=== PATIENT | female | born 1955 ===

== ENCOUNTER 2018-07-05 17:25 | Inpatient (IN) | payer MEDICAID ==
--- NOTE | 2018-07-05 18:12 | C.PDOC ---
History Of Present Illness Hx limited due to clinical condition, Hx as per niece, 63 year old female with new onset slurred speech with AMS upon awakening this morning. Patient has been crying all day, been more confused than usual. Patient has Hx of multiple prior osteomyelitis, recent treatment on 04/2018. Patient had normal speech yesterday as per family. She has had progressive functional decline since 12/2017, requires assistance for ADLS. Patient denies focal pain. Hx of HTN, diabetes, hypothyroidism, rheumatoid arthritis, chronic foot ulcers, and chronic anemia. LIMITED DUE TO CLIN COND HX PER NIECE NEW ONSET SLURRED SPEECH, AMS UPON AWAKENING THIS MORNING. CRYING ALL DAY, MORE CONFUSED THAN USUAL. HO MULT PRIOR OSTEOMYELITIS, RECENT TX 04/2018. NORMAL SPEECH YESTERDAY PER FAMILY. PROGRESSIVE FUNCTIONAL DECLINE SINCE 12/2017, REQUIRES ASSISTANCE FOR ADLS. PT DENIES FOCAL PAIN HO HTN, DM, HYPOTHYROIDISM, RA, CHRONIC FOOT ULCERS, CHRONIC ANEMIA ROS LIMITED EXAM MILD DIST NONTOXIC HEENT MM DRY LUNGS NEG ABD NEG NEURO SEE NIH REMAINDER NEG Time Seen by Provider: 07/05/18 18:00 Chief Complaint (Nursing): Weakness/Neurological Deficit History Per: Family History/Exam Limitations: Clinical Condition Onset/Duration Of Symptoms: Hrs Onset Of Symptoms: Other (Upon awakening) Current Symptoms Are (Timing): Still Present Usual Baseline: Alert Oriented Exacerbating Factor(s): Unknown Speech Is: Slurred Associated Symptoms: Other (AMS) Past Medical History Reviewed: Historical Data, Nursing Documentation, Vital Signs Vital Signs: Last Vital Signs Temp 98.1 F 07/05/18 18:04 Pulse 96 H 07/05/18 18:04 Resp 20 07/05/18 18:04 BP 146/65 07/05/18 18:04 Pulse Ox 100 07/05/18 18:04 Primary Care Provider: Rosalba Holcomb S - Medical History PMH: Anemia, Arthritis, Diabetes, Fractures, HTN, Hypercholesterolemia, Hypothyroidism, Chronic Kidney Disease, Rheumatoid Arthritis Denies: Deep Vein Thrombosis, HIV, Hyperthyroidism, Osteoporosis, Sickle Cell Disease Surgical History: Denies: Pacemaker - [facility] Procedures EXCISION OF L FOOT SUBCU/FASCIA, OPEN APPROACH (04/13/18) EXCISION OF R FOOT SUBCU/FASCIA, OPEN APPROACH (04/13/18) INSERTION OF INFUSION DEV INTO SUP VENA CAVA, PERC APPROACH (04/13/18) TRANSFUSE NONAUT RED BLOOD CELLS IN PERIPH VEIN, PERC (04/13/18) Family History: States: Unknown Family Hx - Social History Hx Alcohol Use: No Hx Substance Use: No - Immunization History Hx Tetanus Toxoid Vaccination: (unk) Hx Influenza Vaccination: Yes (01/2018) Hx Pneumococcal Vaccination: Yes (01/2018) Review Of Systems Review Of Systems: ROS cannot be obtained secondary to pt's inabilty to answer questions. Physical Exam - Physical Exam Appears: Non-toxic, Other (Mild distress) Skin: Normal Color, Warm Head: Atraumatic, Normacephalic Eye(s): bilateral: Normal Inspection Ear(s): Bilateral: Normal Nose: Normal Oral Mucosa: Dry Throat: Normal, No Erythema, No Exudate Neck: Normal, Supple Chest: Symmetrical, No Tenderness Cardiovascular: Rhythm Regular Respiratory: Normal Breath Sounds, No Rales, No Rhonchi, No Wheezing Gastrointestinal/Abdominal: Soft, No Tenderness Neurological/Psych: Other (See NIH) ED Course And Treatment - Laboratory Results Result Diagrams: 07/05/18 19:30 07/05/18 19:30 ECG: Interpreted By Ks, Viewed By Ks ECG Rhythm: Sinus Rhythm ECG Interpretation: Normal Rate From EC O2 Sat by Pulse Oximetry: 100 (Room air) Pulse Ox Interpretation: Normal - Radiology CXR: Interpreted by Ks CXR Interpretation: Yes: No Acute Disease - CT Scan/US CT head Other Rad Studies (CT/US): Read By Radiologist, Radiology Report Reviewed CT/US Interpretation: EXAM: CT Head Without IV contrast. CLINICAL HISTORY: A ms. TECHNIQUE: Axial computed tomography images of the head/brain without intravenous contrast. COMPARISON: None provided. FINDINGS: BRAIN: No acute intraparenchymal hemorrhage. No mass lesion. No CT evidence for acute territorial infarct. 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 VENTRICLES: No hydrocephalus. ORBITS: The orbits are unremarkable. SINUSES AND MASTOIDS: The paranasal sinuses and mastoid air cells are clear. BONES: No fracture. SOFT TISSUES: Unremarkable. 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 . Electronically signed on July 05, 2018 7:56:42 PM EDT by: Von Bae M.D., Certified by [facility], Diagnostic Radiology. NIHSS Stroke Scale - Date/Time Evaluation Performed Date Performed: 07/05/18 Time Performed: 18:09 When Was NIHSS Performed: Baseline - How Severe is the Stoke Level of Consciousness: 1=Drowsy LOC to Questions: 0=Both comments correct LOC to commands: 0=Obeys both correctly Best Gaze: 0=Normal Visual: 0=No visual loss Facial: 0=Normal Motor Arm - Left: 2=Falls before 10 sec Motor Arm - Right: 2=Falls before 10 sec Motor Leg - Left: 3=No effort against gravity (falls immediately) Motor Leg - Right: 3=No effort against gravity (falls immediately) Limb Ataxia: 0=Absent Sensory: 0=Normal Best Language: 0=No aphasia Dysarthia: 1=Mild to moderate slurring Extinction & Inattention (Neglect): 0=Normal, no object Score: 12 Progress - Re-Evaluation Re-evaluation Note: 07/05/18 20:08 exam unch d/w DR Diony HOLCOMB WILL ADMIT - Data Reviewed Data Reviewed: Lab, Diagnostic imaging, EKG, Old records rTPA Inclusion/Exclusion - Refusal of Treatment Patient Refused Treatment: No - Inclusion Criteria for Altepase All of the below criteria for inclusion were reviewed: Yes Patient is 18 years or Older: Yes Clinical DX Ischemic Stroke Cause Neurological Deficit: Yes Time of Onset Established Less Than 270 Mins Before TX Begin: No Risk/Benefit Discussed With Patient/Family Member Present: Yes - Exclusion Criteria for Altepase Current Intracranial Hemorrhage: No Subarachnoid hemorrhage: No Active Internal Bleeding: No Recent (within 3 months) Intracranial or Intraspinal Surgery: No Presence of intracranial conditions that may increase bleed: Aneurysms Bleeding Diathesis Including but not limited to: Not Applicable Current Severe Uncontrolled Hypertension: No - Warning to TPA With Conditions Following Conditions Weighed Against Anticipated Benefit: Yes Condition: Advanced age with poor baseline function Medical Decision Making Medical Decision Making: Plan: * CT Head * EKG * CXR * Urinalysis * Blood work Disposition Counseled Patient/Family Regarding: Studies Performed, Diagnosis - Disposition Disposition: HOSPITALIZED Disposition Time: 20:08 Condition: STABLE Forms: [facility] (Maltese) - POA Present On Arrival: None - Clinical Impression Clinical Impression: TIA (transient ischemic attack) - Scribe Statement The provider has reviewed the documentation as recorded by the Scribe Jacky Liu All medical record entries made by the Scribe were at my direction and personally dictated by me. I have reviewed the chart and agree that the record accurately reflects my personal performance of the history, physical exam, medical decision making, and the department course for this patient. I have also personally directed, reviewed, and agree with the discharge instructions and disposition.
--- NOTE | 2018-07-05 18:26 | RAD ---
Date of service: 07/05/2018 PROCEDURE: CHEST RADIOGRAPH, 1 VIEW HISTORY: AMS COMPARISON: None available. FINDINGS: LUNGS: Clear. PLEURA: No pneumothorax or pleural fluid seen. CARDIOVASCULAR: No aortic atherosclerotic calcification present. Normal. OSSEOUS STRUCTURES: No significant abnormalities. VISUALIZED UPPER ABDOMEN: Normal. OTHER FINDINGS: None. IMPRESSION: No active disease.
[2018-07-05 18:57] LABS: VENOUS BLOOD GAS BASE EXCESS -0.6 mmol/L (0.0-2.0); VENOUS BLOOD GAS PCO2 43 mmHg (40-60); VENOUS BLOOD GAS PO2 39 mm/Hg (30-55); VENOUS BLOOD PH 7.37 (7.32-7.43)
[2018-07-05 19:34] LABS: BASO # 0.1 K/uL (0.0-0.2); BASO % 0.7 % (0.0-2.0); EOS # 0.4 K/uL (0.0-0.7); HEMOGLOBIN 10.5 g/dL (11.0-16.0); LYMPH # 0.9 K/uL (1.0-4.3); LYMPH % 11.7 % (20.0-40.0); MEAN CELL VOLUME 86.5 fL (81.0-99.0); MEAN CORPUSCULAR HEMOGLOBIN 28.1 pg (27.0-31.0); MEAN CORPUSCULAR HGB CONC 32.5 g/dL (33.0-37.0); MEAN PLATELET VOLUME 8.3 fL (7.2-11.7); MONO # 0.9 K/uL (0.0-0.8); MONO % 11.7 % (0.0-10.0); NEUT # 5.4 K/uL (1.8-7.0); NEUT % 70.9 % (50.0-75.0); RBC 3.74 Mil/uL (3.80-5.20); WHITE BLOOD COUNT 7.6 K/uL (4.8-10.8)
[2018-07-05 19:39] LABS: SQUAMOUS EPITHIAL 1 /hpf (0-5); URINE BILIRUBIN NEGATIVE (NEGATIVE); URINE BLOOD NEGATIVE (NEGATIVE); URINE CLARITY Hazy (Clear); URINE COLOR Yellow (YELLOW); URINE GLUCOSE (UA) NORMAL (Normal); URINE LEUKOCYTE ESTERASE NEG Leu/uL (Negative); URINE PROTEIN 2+ mg/dL (NEGATIVE); URINE UROBILINOGEN NORMAL mg/dL (0.2-1.0)
[2018-07-05 19:45] LABS: ALB/GLOB RATIO 0.7 (1.0-2.1); ALBUMIN 3.5 g/dL (3.5-5.0); CALCIUM 9.4 mg/dl (8.6-10.4)
[2018-07-05 22:14] VITALS: RESP 20
[2018-07-06] MEDS: Sodium Chloride 0.45% 1,000 ML IV SCH (09:00)
--- NOTE | 2018-07-06 09:44 | CT ---
Date of service: 07/05/2018 PROCEDURE: CT HEAD WITHOUT CONTRAST. HISTORY: AMS COMPARISON: None available. TECHNIQUE: Axial computed tomography images were obtained through the head/brain without intravenous contrast. Radiation dose: Total exam DLP = 1046.98 mGy-cm. This CT exam was performed using one or more of the following dose reduction techniques: Automated exposure control, adjustment of the mA and/or kV according to patient size, and/or use of iterative reconstruction technique. FINDINGS: HEMORRHAGE: No intracranial hemorrhage. BRAIN: There Is hypodensity noted along the right external capsule suggestive of subacute or old infarction. Mild atrophy and mild to moderate chronic microvascular ischemic changes. VENTRICLES: Unremarkable. No hydrocephalus. CALVARIUM: Unremarkable. PARANASAL SINUSES: Unremarkable as visualized. No significant inflammatory changes. MASTOID AIR CELLS: Unremarkable as visualized. No inflammatory changes. OTHER FINDINGS: None. IMPRESSION: No evidence of acute intracranial hemorrhage mass effect or midline shift. 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 Volume loss and chronic microvascular ischemic changes. Preliminary report was submitted by [facility] Radiology contains concordant findings
[2018-07-06] MEDS ORDERED: CEFTRIAXONE 1 GM IVPB SCH (12:45)
[2018-07-06] MEDS: Enoxaparin 30 mg Syringe SC SCH (13:46)
[2018-07-06] MEDS: Pantoprazole 40 mg EC Tab PO SCH (13:46)
[2018-07-06] MEDS: Metoprolol Succinate 100 mg XL Tab PO SCH (13:47)
--- NOTE | 2018-07-06 13:48 | CP.PCM.CON ---
History of Present Illness - History of Present Illness History of Present Illness: Podiatry consult note for attending Dr. Torrez: 62 year old female with a past medical history of Rheumatoid arthritis, hypertension and hypercholesterolemia and B/L feet OM. seen and evaluated in the bedside for b/l LE stable ulcerations with underlying OM. Patient is poor historian. Patient is well known to the podiatry service as she was admitted back in April under Dr. Torrez care for B/L LE ulcerations with underlying OM. Patient was discharged on long course of Abx. Her family was at the bedside. As per patient's niece, Patient was in the shelter where local wound care was performed to her and she was improving. As per Cheryl patient was doing PT and was doing well and she only started complaining of pain in her legs and feet in the past 2 weeks. She states that she went to [facility] last week and [facility] gave her a short course of Abx. SHe states that the patient is here today as SHe has altered mental status and possible CVA. As per the patient Niece there was no recent fevers, nausea, vomiting, cough,and shortness of breath. PMHx: RA, HTN and HLD. (?possible brain aneurysm as per niece, >5 years ago in [place]) and B/L feet OM. PSHx: Left wrist fracture repair. Possible brain aneurism surgery?, B/L LE I&D. Allergies: NKDA Social Hx: denied tobacco, alcohol or rec drugs. Review of Systems - Review of Systems Review of Systems: As per HPI - Constitutional Constitutional: As Per HPI Past Patient History - Infectious Disease Hx of Infectious Diseases: None - Past Medical History & Family History Past Medical History?: Yes - Past Social History Smoking Status: Never Smoked - CARDIAC Hx Hypercholesterolemia: Yes Hx Hypertension: Yes Hx Pacemaker: No - PULMONARY Hx Respiratory Disorders: No - NEUROLOGICAL Hx Neurological Disorder: No Other/Comment: Aneurysm - HEENT Hx HEENT Problems: No - RENAL Hx Chronic Kidney Disease: Yes - ENDOCRINE/METABOLIC Hx Hyperthyroidism: No Hx Hypothyroidism: Yes - HEMATOLOGICAL/ONCOLOGICAL Hx Anemia: Yes Hx Human Immunodeficiency Virus (HIV): No Hx Sickle Cell Disease: No - INTEGUMENTARY Hx Dermatological Problems: No - MUSCULOSKELETAL/RHEUMATOLOGICAL Hx Arthritis: Yes Hx Fractures: Yes Hx Osteoporosis: No Hx Rheumatoid Arthritis: Yes - GASTROINTESTINAL Hx Gastrointestinal Disorders: No - GENITOURINARY/GYNECOLOGICAL Hx Genitourinary Disorders: No - PSYCHIATRIC Hx Substance Use: No - SURGICAL HISTORY Hx Surgeries: Yes Other/Comment: left wrist surgery, brain surgery - ANESTHESIA Hx Anesthesia: Yes Hx Anesthesia Reactions: No Meds Allergies/Adverse Reactions: Allergies Allergy/AdvReac Type Severity Reaction Status Date / Time No Known Allergies Allergy Verified 07/05/18 17:53 - Medications Medications: Current Medications Amlodipine Besylate (Norvasc) 5 mg PO DAILY [facility] Aspirin (Aspirin) 325 mg PO DAILY [facility] Last Admin: 07/06/18 10:12 Dose: Not Given Aspirin (Aspirin Chewable) 81 mg PO DAILY [facility] Enoxaparin Sodium (Lovenox) 30 mg SC DAILY [facility] Fluconazole (Diflucan) 100 mg PO DAILY [facility]; Protocol Gabapentin (Neurontin) 400 mg PO HS [facility] Sodium Chloride (Sodium Chloride 0.45%) 1,000 mls @ 60 mls/hr IV .[id number] [facility] Ceftriaxone Sodium 1 gm/ (Sodium Chloride) 100 mls @ 100 mls/hr IVPB DAILY [facility] Levothyroxine Sodium (Synthroid) 100 mcg PO DAILY@0630 [facility] Metoprolol Succinate (Toprol Xl) 100 mg PO DAILY [facility] Mirtazapine (Remeron) 15 mg PO HS [facility] Ondansetron HCl (Zofran Inj) 4 mg IVP Q6 PRN PRN Reason: Nausea/Vomiting Pantoprazole Sodium (Protonix Ec Tab) 40 mg PO DAILY [facility] Rosuvastatin Calcium (Crestor) 10 mg PO HS [facility] Silver Sulfadiazine (Silvadene 1% 20 Gm) 1 ea TOP DAILY [facility] Physical Exam - Constitutional Appears: Non-toxic, No Acute Distress - Head Exam Head Exam: ATRAUMATIC - Extremities Exam Additional comments: B/L lower extremity focused exam: Vascular: DP/PT are 2/4 b/l, Cap refill < 3 seconds to all digits, Temp gradient warm to cool from proximal to distal b/l, no edema appreciated to b/l extremities. Neuro: Gross sensation intact, protective sensation diminished. Derm: Left: Multiple Healed ulcers covered by dry scab noted on the heel and lateral side of the left foot. No clinical signs of active infection. Right: Small healing ulcer noted in the right heel 1 cm X 0.4 cm X 0.1 cm. Base is fibrotic, Hyperkeratotic edges. No drainage noted. No tracking, No underm ining, No probe to bone. No clinical signs of active infection. MSK: Muscle power 5/5 to all groups, No pain noted on palpating the elif- ulcerative areas. - Neurological Exam Neurological exam: Alert Results - Vital Signs Recent Vital Signs: Last Vital Signs Temp 98.3 F 07/06/18 07:00 Pulse 90 07/06/18 07:00 Resp 20 07/06/18 07:00 BP 137/77 07/06/18 07:00 Pulse Ox 98 07/06/18 07:00 - Labs Result Diagrams: 07/05/18 19:30 07/05/18 19:30 Labs: Laboratory Results - last 24 hr 07/05/18 07/05/18 07/05/18 17:41 18:54 19:30 WBC 7.6 RBC 3.74 L Hgb 10.5 L Hct 32.4 L MCV 86.5 MCH 28.1 MCHC 32.5 L RDW 15.0 H Plt Count 400 MPV 8.3 Neut % (Auto) 70.9 Lymph % (Auto) 11.7 L [place] % (Auto) 11.7 H Eos % (Auto) 5.0 H Baso % (Auto) 0.7 Neut # (Auto) 5.4 Lymph # (Auto) 0.9 L [place] # (Auto) 0.9 H Eos # (Auto) 0.4 Baso # (Auto) 0.1 pO2 39 VBG pH 7.37 VBG pCO2 43 VBG HCO3 23.8 VBG Total CO2 26.2 VBG O2 Sat (Calc) 73.6 H VBG Base Excess -0.6 L VBG Potassium 4.5 Sodium 136.0 Chloride 105.0 Glucose 133 H Lactate 1.4 Potassium Carbon Dioxide Anion Gap BUN Creatinine Est GFR ( Amer) Est GFR (Non-Af Amer) POC Glucose (mg/dL) 186 H Random Glucose Calcium Phosphorus Magnesium Total Bilirubin AST ALT Alkaline Phosphatase Total Protein Albumin Globulin Albumin/Globulin Ratio Venous Blood Potassium 4.5 Urine Color Urine Clarity Urine pH Ur Specific [place] Urine Protein Urine Glucose (UA) Urine Ketones Urine Blood Urine Nitrate Urine Bilirubin Urine Urobilinogen Ur Leukocyte Esterase Urine WBC (Auto) Urine RBC (Auto) Ur Squamous Epith Cells 07/05/18 07/05/1807/06/19 19:30 19:30 06:23 WBC RBC Hgb Hct MCV MCH MCHC RDW Plt Count MPV Neut % (Auto) Lymph % (Auto) [place] % (Auto) Eos % (Auto) Baso % (Auto) Neut # (Auto) Lymph # (Auto) [place] # (Auto) Eos # (Auto) Baso # (Auto) pO2 VBG pH VBG pCO2 VBG HCO3 VBG Total CO2 VBG O2 Sat (Calc) VBG Base Excess VBG Potassium Sodium 134 Chloride 101 Glucose Lactate Potassium 4.7 Carbon Dioxide 24 Anion Gap 13 BUN 41 H Creatinine 1.7 H Est GFR ( Amer) 37 Est GFR (Non-Af Amer) 30 POC Glucose (mg/dL) 110 Random Glucose 137 H Calcium 9.4 Phosphorus 4.1 Magnesium 2.0 Total Bilirubin 0.2 AST 20 ALT 10 Alkaline Phosphatase 90 Total Protein 8.3 Albumin 3.5 Globulin 4.8 H Albumin/Globulin Ratio 0.7 L Venous Blood Potassium Urine Color Yellow Urine Clarity Hazy Urine pH 5.0 Ur Specific [place] 1.015 Urine Protein 2+ H Urine Glucose (UA) Normal Urine Ketones Negative Urine Blood Negative Urine Nitrate Negative Urine Bilirubin Negative Urine Urobilinogen Normal Ur Leukocyte Esterase Neg Urine WBC (Auto) 2 Urine RBC (Auto) 1 Ur Squamous Epith Cells 1 Assessment & Plan - Assessment and Plan (Free Text) Assessment: 62 year old female with a past medical history of Rheumatoid arthritis, hypertension and hypercholesterolemia and B/L feet OM. seen and evaluated in the bedside for b/l LE stable ulcerations with underlying OM. Plan: Patient seen and evaluated at the bedside. Discussed in detail with Dr. Torrez Charts, labs and vitals reviewed; Afebrile, WBC 7.6. B/L foot/ankle x-ray: Ordered B/L tib/fibula x-ray: Ordered. B/L ROXY/PVR: Ordered B/L feet then dressed with betadine and DSD. Ordered Surgical shoe. Patient to ambulate in a surgical shoe. Patient to be full WB b/l. Ordered Multipodous boot. Patient to stay in multipodous boot while in bed. Thank you for the consult. Podiatry will follow up the patient while in house. - Date & Time Date: 07/06/18 Time: 13:49
--- NOTE | 2018-07-06 17:28 | CP.PCM.HP ---
Past Patient History - Infectious Disease Hx of Infectious Diseases: None - Past Medical History & Family History Past Medical History?: Yes - Past Social History Smoking Status: Never Smoked - CARDIAC Hx Hypercholesterolemia: Yes Hx Hypertension: Yes Hx Pacemaker: No - PULMONARY Hx Respiratory Disorders: No - NEUROLOGICAL Hx Neurological Disorder: No Other/Comment: Aneurysm - HEENT Hx HEENT Problems: No - RENAL Hx Chronic Kidney Disease: Yes - ENDOCRINE/METABOLIC Hx Hyperthyroidism: No Hx Hypothyroidism: Yes - HEMATOLOGICAL/ONCOLOGICAL Hx Anemia: Yes Hx Human Immunodeficiency Virus (HIV): No Hx Sickle Cell Disease: No - INTEGUMENTARY Hx Dermatological Problems: No - MUSCULOSKELETAL/RHEUMATOLOGICAL Hx Arthritis: Yes Hx Fractures: Yes Hx Osteoporosis: No Hx Rheumatoid Arthritis: Yes - GASTROINTESTINAL Hx Gastrointestinal Disorders: No - GENITOURINARY/GYNECOLOGICAL Hx Genitourinary Disorders: No - PSYCHIATRIC Hx Substance Use: No - SURGICAL HISTORY Hx Surgeries: Yes Other/Comment: left wrist surgery, brain surgery - ANESTHESIA Hx Anesthesia: Yes Hx Anesthesia Reactions: No Meds Allergies/Adverse Reactions: Allergies Allergy/AdvReac Type Severity Reaction Status Date / Time No Known Allergies Allergy Verified 07/05/18 17:53 Physical Exam - Constitutional Appears: Well - Head Exam Head Exam: ATRAUMATIC, NORMAL INSPECTION, NORMOCEPHALIC - Eye Exam Eye Exam: EOMI, Normal appearance, PERRL Pupil Exam: NORMAL ACCOMODATION, PERRL - ENT Exam ENT Exam: Mucous Membranes Moist, Normal Exam - Neck Exam Neck exam: Positive for: Normal Inspection - Respiratory Exam Respiratory Exam: Decreased Breath Sounds - Cardiovascular Exam Cardiovascular Exam: REGULAR RHYTHM, +S1, +S2 - GI/Abdominal Exam GI & Abdominal Exam: Diminished Bowel Sounds, Soft - Rectal Exam Rectal Exam: Deferred - Neurological Exam Neurological exam: Oriented x3 Results - Vital Signs Recent Vital Signs: Last Vital Signs Temp 97.9 F 07/06/18 15:09 Pulse 87 07/06/18 16:00 Resp 20 07/06/18 15:09 BP 153/82 H 07/06/18 15:09 Pulse Ox 100 07/06/18 16:00 - Labs Result Diagrams: 07/05/18 19:30 07/05/18 19:30 Labs: Laboratory Results - last 24 hr 07/05/18 07/05/18 07/05/18 17:41 18:54 19:30 WBC 7.6 RBC 3.74 L Hgb 10.5 L Hct 32.4 L MCV 86.5 MCH 28.1 MCHC 32.5 L RDW 15.0 H Plt Count 400 MPV 8.3 Neut % (Auto) 70.9 Lymph % (Auto) 11.7 L [place] % (Auto) 11.7 H Eos % (Auto) 5.0 H Baso % (Auto) 0.7 Neut # (Auto) 5.4 Lymph # (Auto) 0.9 L [place] # (Auto) 0.9 H Eos # (Auto) 0.4 Baso # (Auto) 0.1 pO2 39 VBG pH 7.37 VBG pCO2 43 VBG HCO3 23.8 VBG Total CO2 26.2 VBG O2 Sat (Calc) 73.6 H VBG Base Excess -0.6 L VBG Potassium 4.5 Sodium 136.0 Chloride 105.0 Glucose 133 H Lactate 1.4 Potassium Carbon Dioxide Anion Gap BUN Creatinine Est GFR ( Amer) Est GFR (Non-Af Amer) POC Glucose (mg/dL) 186 H Random Glucose Calcium Phosphorus Magnesium Total Bilirubin AST ALT Alkaline Phosphatase Total Protein Albumin Globulin Albumin/Globulin Ratio Venous Blood Potassium 4.5 Urine Color Urine Clarity Urine pH Ur Specific [place] Urine Protein Urine Glucose (UA) Urine Ketones Urine Blood Urine Nitrate Urine Bilirubin Urine Urobilinogen Ur Leukocyte Esterase Urine WBC (Auto) Urine RBC (Auto) Ur Squamous Epith Cells 07/05/18 07/05/18 07/06/18 19:30 19:30 06:23 WBC RBC Hgb Hct MCV MCH MCHC RDW Plt Count MPV Neut % (Auto) Lymph % (Auto) [place] % (Auto) Eos % (Auto) Baso % (Auto) Neut # (Auto) Lymph # (Auto) [place] # (Auto) Eos # (Auto) Baso # (Auto) pO2 VBG pH VBG pCO2 VBG HCO3 VBG Total CO2 VBG O2 Sat (Calc) VBG Base Excess VBG Potassium Sodium 134 Chloride 101 Glucose Lactate Potassium 4.7 Carbon Dioxide 24 Anion Gap 13 BUN 41 H Creatinine 1.7 H Est GFR ( Amer) 37 Est GFR (Non-Af Amer) 30 POC Glucose (mg/dL) 110 Random Glucose 137 H Calcium 9.4 Phosphorus 4.1 Magnesium 2.0 Total Bilirubin 0.2 AST 20 ALT 10 Alkaline Phosphatase 90 Total Protein 8.3 Albumin 3.5 Globulin 4.8 H Albumin/Globulin Ratio 0.7 L Venous Blood Potassium Urine Color Yellow Urine Clarity Hazy Urine pH 5.0 Ur Specific [place] 1.015 Urine Protein 2+ H Urine Glucose (UA) Normal Urine Ketones Negative Urine Blood Negative Urine Nitrate Negative Urine Bilirubin Negative Urine Urobilinogen Normal Ur Leukocyte Esterase Neg Urine WBC (Auto) 2 Urine RBC (Auto) 1 Ur Squamous Epith Cells 1
--- NOTE | 2018-07-06 20:16 | RAD ---
Date of service: 07/06/2018 PROCEDURE: Radiographs of the bilateral Tibiae and Fibulae. HISTORY: B/L leg ulcers w/ underlying OM. COMPARISON: None available. TECHNIQUE: Frontal and lateral views obtained. 4 views obtained. FINDINGS: BONES: RIGHT TIBIA: No fracture or destructive lesion. No evidence of significant or focal periosteal thickening. LEFT TIBIA: No fracture or destructive lesion. No evidence of significant or focal periosteal thickening. JOINT SPACES: RIGHT TIBIA: Normal. LEFT TIBIA: Normal. SOFT TISSUES: RIGHT TIBIA: Normal. LEFT TIBIA: Normal. OTHER FINDINGS: None. IMPRESSION: No definite radiographic evidence of active osteomyelitis.
--- NOTE | 2018-07-06 20:26 | RAD ---
Date of service: 07/06/2018 PROCEDURE: Bilateral Feet Radiographs. HISTORY: B/L foot ulcers w/ underlying OM. COMPARISON: None. TECHNIQUE: 6 views obtained. FINDINGS: BONES: Right Foot: Normal. No fracture. Left Foot: There is a cortical irregularity noted at the posterior aspect of the left calcaneus. The possibility of osteomyelitis is not totally excluded. JOINTS: Right Foot: Osteoarthritis. Left Foot: Osteoarthritis. SOFT TISSUES: Right Foot: Small skin ulcer at right heel. Left Foot: Skin and subcutaneous defect in the left heel OTHER FINDINGS: None. IMPRESSION: Cortical irregularity at the posterior and plantar aspect of the left calcaneus suspicious for osteomyelitis.
[2018-07-07] MEDS: Sodium Chloride 0.45% 1,000 ML IV SCH ×3 (03:30→20:27)
[2018-07-07] MEDS: Levothyroxine 100 MCG TAB PO SCH (07:04)
--- NOTE | 2018-07-07 09:54 | CP.PCM.PN ---
Subjective - Date & Time of Evaluation Date of Evaluation: 07/07/18 Time of Evaluation: 09:53 - Subjective Subjective: 63 year old female with a past medical history of hypertension, hyperlipidemia, and rheumatoid arthritis) presented with sympotms of new onset slurred speech prior to coming into the hospital. Patient was also altered during this epis ode. Per niece, patient was crying the whole day leading up to the event. Of note, patient has had repeated osteomyelitis infections in the past with the most recent being 04/2018. Remainder of ROS unable to obtain due to patients current clinical condition. PMHx: RA, HTN and HLD. (?possible brain aneurysm as per niece, >5 years ago in [place]) and B/L feet OM. PSHx: Left wrist fracture repair. Possible brain aneurism surgery?, B/L LE I&D. Allergies: NKDA Social Hx: denied tobacco, alcohol or rec drugs. Objective - Vital Signs/Intake and Output Vital Signs (last 24 hours): Temp Pulse Resp BP Pulse Ox 98.2 F 84 20 131/80 96 07/07/18 07:15 07/07/18 07:15 07/07/18 07:15 07/07/18 07:15 07/07/18 07:15 Intake and Output: 07/07/18 07/07/18 06:59 18:59 Intake Total 960 Output Total 1200 Balance -240 - Medications Medications: Current Medications Amlodipine Besylate (Norvasc) 5 mg PO DAILY [facility] Last Admin: 07/06/18 13:47 Dose: 5 mg Aspirin (Aspirin) 325 mg PO DAILY [facility] Last Admin: 07/06/18 10:12 Dose: Not Given Aspirin (Aspirin Chewable) 81 mg PO DAILY [facility] Last Admin: 07/06/18 13:47 Dose: 81 mg Enoxaparin Sodium (Lovenox) 30 mg SC DAILY [facility] Last Admin: 07/06/18 13:46 Dose: 30 mg Fluconazole (Diflucan) 100 mg PO DAILY [facility]; Protocol Last Admin: 07/06/18 13:50 Dose: 100 mg Gabapentin (Neurontin) 400 mg PO HS [facility] Last Admin: 07/06/18 22:03 Dose: 400 mg Sodium Chloride (Sodium Chloride 0.45%) 1,000 mls @ 60 mls/hr IV .[id number] [facility] Last Admin: 07/07/18 05:00 Dose: 60 mls/hr Ceftriaxone Sodium 1 gm/ (Sodium Chloride) 100 mls @ 100 mls/hr IVPB DAILY [facility] Last Admin: 07/06/18 18:29 Dose: 100 mls/hr Vancomycin HCl 1 gm/ Sodium (Chloride) 250 mls @ 166.7 mls/hr IVPB Q24H [facility]; Pr otocol Levothyroxine Sodium (Synthroid) 100 mcg PO DAILY@0630 [facility] Last Admin: 07/07/18 07:04 Dose: 100 mcg Metoprolol Succinate (Toprol Xl) 100 mg PO DAILY [facility] Last Admin: 07/06/18 13:47 Dose: 100 mg Mirtazapine (Remeron) 15 mg PO [facility] Last Admin: 07/06/18 22:00 Dose: 15 mg Ondansetron HCl (Zofran Inj) 4 mg IVP Q6 PRN PRN Reason: Nausea/Vomiting Pantoprazole Sodium (Protonix Ec Tab) 40 mg PO DAILY [facility] Last Admin: 07/06/18 13:46 Dose: 40 mg Rosuvastatin Calcium (Crestor) 10 mg PO [facility] Last Admin: 07/06/18 22:00 Dose: 10 mg Silver Sulfadiazine (Silvadene 1% 20 Gm) 1 ea TOP DAILY [facility] - Labs Labs: 07/05/18 19:30 07/05/18 19:30 - Head Exam Head Exam: NORMAL INSPECTION - Eye Exam Eye Exam: EOMI, Normal appearance Pupil Exam: NORMAL ACCOMODATION, PERRL - ENT Exam ENT Exam: Mucous Membranes Moist, Normal Exam - Neck Exam Neck Exam: Normal Inspection. absent: Tenderness - Respiratory Exam Respiratory Exam: Clear to Ausculation Bilateral, NORMAL BREATHING PATTERN. absent: Stridor - Cardiovascular Exam Cardiovascular Exam: REGULAR RHYTHM, +S1, +S2 - GI/Abdominal Exam GI & Abdominal Exam: Soft, Tenderness, Normal Bowel Sounds - Extremities Exam Extremities Exam: Normal Capillary Refill, Normal Inspection, Pedal Edema - Back Exam Back Exam: NORMAL INSPECTION - Neurological Exam Neurological Exam: Awake, CN II-XII Intact, Normal Gait, Oriented x3 - Psychiatric Exam Psychiatric exam: Normal Affect, Normal Mood. absent: Homicidal Ideation, Manic - Skin Skin Exam: Dry, Intact, Normal Color Assessment and Plan - Assessment and Plan (Free Text) Assessment: 63 year old female with a past medical history of hypertension, hyperlipidemia, and rheumatoid arthritis) presented with sympotms of new onset slurred speech prior to coming into the hospital. Patient was also altered during this episode. Plan: 1.TIA -GCS 12 on admission -Head ct :No evidence of acute intracranial hemorrhage mass effect or midline shift. 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 Volume loss and chronic microvascular ischemic changes. -Neurology Dr. Vaughn consulted--> Help appreciated Medications: ASA 325MG po daily 2.hx of Hypertension -Cotinue Amlodipine 5mg PO DAILY -Continue Metoprolol 100mg PO DAILY 3.hx of Hyperlipidemia -Continue Crestor 10mg PO HS 4.hx of Neuropathy -Continue Gabapentin 400mg PO HS 5.hx of Hypothyroidism -Continue Synthroid 100mcg PO DAILY 6.hx of Osteomyellitis of feet -Blood cx ordered. Will f/u with results. -Podiatry Dr. Torrez consulted. :Patient seen and evaluated at the bedside. Discussed in detail with Dr. Torrez Charts, labs and vitals reviewed; Afebrile, WBC 7.6. B/L foot/ankle x-ray: Ordered B/L tib/fibula x-ray: Ordered. B/L ROXY/PVR: Ordered B/L feet then dressed with betadine and DSD. Ordered Surgical shoe. Patient to ambulate in a surgical shoe. Patient to be full WB b/l. Ordered Multipodous boot. Patient to stay in multipodous boot while in bed. Thank you for the consult. Podiatry will follow up the patient while in house. Medications: Vancomycin 1gm IVPB Q24H Ceftriaxone 1gm IVPB DAILY Silvadene 1 ea TOP DAILY PPX Lovenox Protonix PT Dispo: Awaiting Neurology recommendations. Plan discussed with Attending Dr. Collin Marte. Joao Mosley, PGY2
[2018-07-07] MEDS: Metoprolol Succinate 100 mg XL Tab PO SCH (11:00)
[2018-07-07] MEDS: Pantoprazole 40 mg EC Tab PO SCH (11:00)
[2018-07-07] MEDS: Enoxaparin 30 mg Syringe SC SCH (11:00)
--- NOTE | 2018-07-07 14:35 | CP.PCM.PN ---
Subjective - Date & Time of Evaluation Date of Evaluation: 07/07/18 Time of Evaluation: 09:50 - Subjective Subjective: patient examined today no nausea no dizziness no diarrhea no fever no vomiting no shortness of breath Objective - Vital Signs/Intake and Output Vital Signs (last 24 hours): Temp Pulse Resp BP Pulse Ox 98.2 F 84 20 131/80 96 07/07/18 07:15 07/07/18 08:00 07/07/18 07:15 07/07/18 07:15 07/07/18 08:00 Intake and Output: 07/07/18 07/07/18 06:59 18:59 Intake Total 960 Output Total 1200 Balance -240 - Medications Medications: Current Medications Amlodipine Besylate (Norvasc) 5 mg PO DAILY [facility] Last Admin: 07/06/18 13:47 Dose: 5 mg Aspirin (Aspirin) 325 mg PO DAILY [facility] Last Admin: 07/06/18 10:12 Dose: Not Given Aspirin (Aspirin Chewable) 81 mg PO DAILY [facility] Last Admin: 07/06/18 13:47 Dose: 81 mg Enoxaparin Sodium (Lovenox) 30 mg SC DAILY [facility] Last Admin: 07/06/18 13:46 Dose: 30 mg Fluconazole (Diflucan) 100 mg PO DAILY [facility]; Protocol Last Admin: 07/06/18 13:50 Dose: 100 mg Gabapentin (Neurontin) 400 mg PO HS [facility] Last Admin: 07/06/18 22:03 Dose: 400 mg Sodium Chloride (Sodium Chloride 0.45%) 1,000 mls @ 60 mls/hr IV .[id number] [facility] Last Admin: 07/07/18 05:00 Dose: 60 mls/hr Ceftriaxone Sodium 1 gm/ (Sodium Chloride) 100 mls @ 100 mls/hr IVPB DAILY [facility] Last Admin: 07/07/18 13:15 Dose: 100 mls/hr Vancomycin HCl 1 gm/ Sodium (Chloride) 250 mls @ 166.7 mls/hr IVPB Q24H [facility]; Protocol Last Admin: 07/07/18 13:16 Dose: 166.7 mls/hr Levothyroxine Sodium (Synthroid) 100 mcg PO DAILY@0630 [facility] Last Admin: 07/07/18 07:04 Dose: 100 mcg Metoprolol Succinate (Toprol Xl) 100 mg PO DAILY [facility] Last Admin: 07/06/18 13:47 Dose: 100 mg Mirtazapine (Remeron) 15 mg PO HS [facility] Last Admin: 07/06/18 22:00 Dose: 15 mg Ondansetron HCl (Zofran Inj) 4 mg IVP Q6 PRN PRN Reason: Nausea/Vomiting Pantoprazole Sodium (Protonix Ec Tab) 40 mg PO DAILY [facility] Last Admin: 07/06/18 13:46 Dose: 40 mg Rosuvastatin Calcium (Crestor) 10 mg PO HS [facility] Last Admin: 07/06/18 22:00 Dose: 10 mg Silver Sulfadiazine (Silvadene 1% 20 Gm) 1 ea TOP DAILY [facility] - Labs Labs: 07/05/18 19:30 07/05/18 19:30 - Constitutional Appears: Well - Head Exam Head Exam: ATRAUMATIC, NORMAL INSPECTION, NORMOCEPHALIC - Eye Exam Eye Exam: EOMI, Normal appearance, PERRL Pupil Exam: NORMAL ACCOMODATION, PERRL - ENT Exam ENT Exam: Mucous Membranes Moist, Normal Exam - Neck Exam Neck Exam: Full ROM, Normal Inspection. absent: Lymphadenopathy - Respiratory Exam Respiratory Exam: Decreased Breath Sounds - Cardiovascular Exam Cardiovascular Exam: REGULAR RHYTHM, +S1, +S2 - GI/Abdominal Exam GI & Abdominal Exam: Soft, Diminished Bowel Sounds - Rectal Exam Rectal Exam: Deferred - Neurological Exam Neurological Exam: Oriented x3 Assessment and Plan - Assessment and Plan (Free Text) Plan: plan discussed with patient and staff moderate complexity of care aspirin aspirin chewable ceftriaxone sodium crestor diflucan lovenox neurontin norvasc protonix ec tab remeron silvadene sodium chloride synthroid toprol xl vancomycin zofran inj medications reviewed labs reviewed vitals reviewed
--- NOTE | 2018-07-07 18:50 | CARD ---
APPROVED REPORT Date of service: 07/07/2018 EXAM: Two-dimensional and M-mode echocardiogram with Doppler and color Doppler. INDICATION gpc bactermia r/o endocarditis h/o RISK FACTORS Hypertension Hyperlipidemia 2D DIMENSIONS IVSd1.2 (0.7-1.1cm)LVDd4.0 (3.9-5.9cm) PWd1.0 (0.7-1.1cm)LA Olrynt51 (18-58mL) LVDs2.6 (2.5-4.0cm)FS (%) 35.1 % LVEF (%)65.0 (>50%)LVEF (Hammond's)76.18 % IVC0.00 cm M-Mode DIMENSIONS Left Atrium (MM)3.43 (2.5-4.0cm)Aortic Root2.50 (2.2-3.7cm) Aortic Cusp Exc.1.73 (1.5-2.0cm) Mitral Valve MV E Prtjemnv681.7cm/sMV A Gaoibdmm457.4cm/sE/A ratio0.8 AFAE635.63 cm/s TDI Lateral E' Peak V5.96cm/sMedial E' Peak V4.54cm/sE/Lateral E'20.9 E/Medial E'27.5 Tricuspid Valve TR Peak Wqygvrig293ap/sTR Peak Gr.[id number] LEFT VENTRICLE The left ventricle is normal size. There is borderline concentric left ventricular hypertrophy. The left ventricular function is normal. The left ventricular ejection fraction is within the normal range. There is normal LV segmental wall motion. Transmitral Doppler flow pattern is Grade I-abnormal relaxation pattern. RIGHT VENTRICLE The right ventricle is normal size. There is normal right ventricular wall thickness. The right ventricular systolic function is normal. ATRIA The left atrium size is normal. The right atrium size is normal. AORTIC VALVE The aortic valve is not well visualized. There is mild aortic regurgitation. MITRAL VALVE The mitral valve is moderately thickened. Mitral regurgitation is mild. TRICUSPID VALVE There is trace tricuspid regurgitation. PULMONIC VALVE There is trace pulmonic valvular regurgitation. GREAT VESSELS The aortic root is normal in size. The IVC is normal in size and collapses >50% with inspiration. <Conclusion> There is borderline concentric left ventricular hypertrophy. The left ventricular function is normal. The left ventricular ejection fraction is within the normal range. There is normal LV segmental wall motion. Transmitral Doppler flow pattern is Grade I-abnormal relaxation pattern. No vegitation seen, however if endocarditis is suspected , consider UDAY
--- NOTE | 2018-07-07 20:43 | CARD ---
APPROVED REPORT Date of service: 07/06/2018 EKG Measurement Heart [id number] <Conclusion> Normal sinus rhythm Left axis deviation Inferior infarct, age undetermined Abnormal ECG
--- NOTE | 2018-07-07 23:09 | CP.PCM.PN ---
Subjective - Date & Time of Evaluation Date of Evaluation: 07/07/18 Time of Evaluation: 14:00 - Subjective Subjective: Podiatry progress note- attending Dr. Torrez: 62 year old female with a past medical history of Rheumatoid arthritis, hypertension and hypercholesterolemia seen and evaluated for b/l LE stable ulcerations with underlying OM. Patient is seen resting comfortably in bed with dressing clean dry and intact with multipodus boots. Patient expresses pain with palpation to the lower extremity. Denies nausea, fever, shortness of breath, ch est pain or chills. Objective - Vital Signs/Intake and Output Vital Signs (last 24 hours): Temp Pulse Resp BP Pulse Ox 98.2 F 84 20 150/77 98 07/07/18 15:03 07/07/18 16:00 07/07/18 15:03 07/07/18 15:03 07/07/18 15:03 Intake and Output: 07/07/18 07/08/18 18:59 06:59 Intake Total 480 Output Total 400 Balance 80 - Medications Medications: Current Medications Amlodipine Besylate (Norvasc) 5 mg PO DAILY [facility] Last Admin: 07/07/18 11:00 Dose: Not Given Aspirin (Aspirin) 325 mg PO DAILY [facility] Last Admin: 07/07/18 11:00 Dose: Not Given Aspirin (Aspirin Chewable) 81 mg PO DAILY [facility] Last Admin: 07/07/18 11:00 Dose: Not Given Enoxaparin Sodium (Lovenox) 30 mg SC DAILY [facility] Last Admin: 07/07/18 11:00 Dose: 30 mg Fluconazole (Diflucan) 100 mg PO DAILY [facility]; Protocol Last Admin: 07/07/18 11:00 Dose: Not Given Gabapentin (Neurontin) 400 mg PO HS [facility] Last Admin: 07/07/18 22:14 Dose: 400 mg Sodium Chloride (Sodium Chloride 0.45%) 1,000 mls @ 60 mls/hr IV .[id number] [facility] Last Admin: 07/07/18 20:27 Dose: Not Given Ceftriaxone Sodium 1 gm/ (Sodium Chloride) 100 mls @ 100 mls/hr IVPB DAILY [facility] Last Admin: 07/07/18 13:15 Dose: 100 mls/hr Vancomycin HCl 1 gm/ Sodium (Chloride) 250 mls @ 166.7 mls/hr IVPB Q24H [facility]; Protocol Last Admin: 07/07/18 13:16 Dose: 166.7 mls/hr Levothyroxine Sodium (Synthroid) 100 mcg PO DAILY@0630 [facility] Last Admin: 07/07/18 07:04 Dose: 100 mcg Metoprolol Succinate (Toprol Xl) 100 mg PO DAILY [facility] Last Admin: 07/07/18 11:00 Dose: Not Given Mirtazapine (Remeron) 15 mg PO HS [facility] Last Admin: 07/07/18 22:14 Dose: 15 mg Ondansetron HCl (Zofran Inj) 4 mg IVP Q6 PRN PRN Reason: Nausea/Vomiting Pantoprazole Sodium (Protonix Ec Tab) 40 mg PO DAILY [facility] Last Admin: 07/07/18 11:00 Dose: Not Given Rosuvastatin Calcium (Crestor) 10 mg PO [facility] Last Admin: 07/07/18 22:14 Dose: 10 mg Silver Sulfadiazine (Silvadene 1% 20 Gm) 1 ea TOP DAILY [facility] - Labs Labs: 07/05/18 19:30 07/05/18 19:30 - Constitutional Appears: Well, Non-toxic, No Acute Distress - Extremities Exam Extremities Exam: absent: Calf Tenderness Additional comments: B/L lower extremity focused exam: Vascular: DP/PT are 2/4 b/l, Cap refill < 3 seconds to all digits, Temp gradient warm to cool from proximal to distal b/l, no edema appreciated to b/l extremities. Neuro: Gross sensation intact, protective sensation diminished. Derm: Left: Multiple Healed ulcers covered by dry scab noted on the heel and lateral side of the left foot. No clinical signs of active infection. Right: Small healing ulcer noted in the right heel 1 cm X 0.4 cm X 0.1 cm. Base is fibrotic, Hyperkeratotic edges. No drainage noted. No tracking, No undermining, No probe to bone. No clinical signs of active infection. MSK: Muscle power 5/5 to all groups, No pain noted on palpating the elif- ulcerative areas. - Neurological Exam Neurological Exam: Alert, Awake, Oriented x3 - Psychiatric Exam Psychiatric exam: Normal Affect, Normal Mood Assessment and Plan - Assessment and Plan (Free Text) Assessment: 62 year old female with a past medical history of Rheumatoid arthritis, hypertension and hypercholesterolemia and B/L feet OM seen and evaluated in the bedside for b/l LE stable ulcerations with underlying OM. Plan: Patient seen and evaluated at the bedside. Charts, labs and vitals reviewed Discussed plan with attending Dr. Torrez B/L foot/ankle x-ray: Cortical irregularity at the posterior and plantar aspect of the left calcaneus suspicious for osteomyelitis. B/L tib/fibula x-ray: WNL B/L ROXY/PVR: Ordered B/L feet then dressed with betadine and DSD. Patient to be full weight bearing in surgical shoe Patient to continue to wear multipodous boot at all times while in bed. Continue with Abx per ID No surgical intervention from podiatry Podiatry will continue to provide local wound care. Podiatry will follow up the patient while in house. Upon discharge, patient to follow up with Dr. Torrez within 1 week Change dressing daily with betadine, dsd, and kerlix Offloading multipodus must be worn at all times while in bed
--- NOTE | 2018-07-08 00:12 | CON ---
DATE: 07/07/2018 HISTORY OF PRESENT ILLNESS: This is a 63-year-old female with past medical history of rheumatoid arthritis, hypertension and hypercholesterolemia who came [facility] the [facility] a [facility] with slurred speech on Friday and also has bilateral leg ulcerations and brought here because of slurred speech and also complained of pain in both feet and legs and also some change in mental status. I was called to evaluate the patient. PAST MEDICAL HISTORY: Hypertension, high cholesterol and rheumatoid arthritis. PAST SURGICAL HISTORY: Left wrist fracture repair. ALLERGIES: NO KNOWN DRUG ALLERGIES. REVIEW OF SYSTEMS: A 10-point review of systems negative. PHYSICAL EXAMINATION: VITAL SIGNS: Blood pressure 137/77. HEENT: Normocephalic, atraumatic. NECK: Supple. NEUROLOGIC: Awake, oriented to self and place. Cranial nerves II through XII are tested. Pupils reactive. Small radius movement of the extremities noted. Deep tendon reflexes 1+. Plantars are downgoing. Sensory appears intact. Cerebellar, gait deferred. LABORATORY DATA: WBC 7.6, hemoglobin 10.5, hematocrit 32.4, platelet 400. Sodium 134, potassium 4.7, chloride 101, CO2 of 27, glucose 137, BUN 41, creatinine 1.7. CAT scan of the head was done which shows external capsule infarct and workup in progress. IMPRESSION AND PLAN: Possible transient ischemic attack. Continue present management. We will follow up. Merrill Vaughn MD
[2018-07-08] MEDS: Sodium Chloride 0.45% 1,000 ML IV SCH (05:47)
[2018-07-08] MEDS: Levothyroxine 100 MCG TAB PO SCH (05:48)
--- NOTE | 2018-07-08 07:18 | CON ---
DATE: 07/07/2018 INFECTIOUS DISEASE CONSULTATION REQUESTED BY:. Yaakov Marte MD HISTORY OF PRESENT ILLNESS: This patient, Ursula Haskins, is a 63-year-old female. I have looked through her old chart and which is from [place]. She was there till 04/29/2018. The patient is 63 years old with history of hypertension, diabetes, hypothyroidism, rheumatoid arthritis, chronic foot ulcerations, had multiple foot and leg ulcers and was treated for osteomyelitis of multiple bones in her feet and was initially given vancomycin and ceftriaxone, and then she went with Unasyn and Rocephin, but it seemed that she was getting vancomycin and Rocephin in the rehab which she finished according to the niece, but I find that the ER has still written vancomycin and Rocephin, so she may be on it still. She has also been on hypothyroid medications and for depression and rheumatoid arthritis. She is not able to ambulate, used to ambulate prior to the admissions to the hospital. Now, she came in with altered mental status to the [facility]. She found her on Friday in the longterm confused and her speech was not recognizable and has been declining in all her daily activities. She was brought in here and is being worked up for CVA and TIA. I am asked to see her because there were positive blood cultures. She had one blood culture positive this morning which came out with gram-positive cocci and was reported as Staph epidermidis. I asked her niece if there was any metal in the body. She denied that but this patient probably may have a PICC line if she is still getting the IV antibiotics. I need to confirm that on my next visit as she was she was trying to verbalize, but she was not able to communicate much even the patient's eyes were open and the niece said that she was little better than the time when she had come in, but her voice was slurred as if her tongue was rotating in her mouth. She was also crying, has had osteomyelitis, the knee side of the legs, but the legs had no ulcerations. On looking up the old chart, I find of the feet. We will also find out MRI report if it was done. allergic: NKA PAST MEDICAL HISTORY: Hypertension, diabetes, hypothyroidism, rheumatoid chronic foot ulcers, chronic anemia, not able to verbalize much. PHYSICAL EXAMINATION: VITAL SIGNS: On admission, her temperature is 98.2, pulse 84, blood pressure is 150/77, respirations are 20. She is arousable. She does have a facial droop noted. HEENT: Head is atraumatic, normocephalic. Facial droop on left side. NECK: Supple. JVP is flat. LUNGS: Clear to auscultation. No crackles or rales present. HEART: S1 and S2 are regular. ABDOMEN: Soft, nontender. No guarding, no rigidity present. EXTREMITIES: Have no edema, clubbing or cyanosis but both feet, there are dressings and ulcerations. [employer] just changed the dressings, so I will follow their notes, but she does have open wounds on it. Labs are noted. Labs show white count is 7.6, hemoglobin 10.5, hematocrit 32.4. This is from 07/05/2018. We will repeat the labs tomorrow. BUN is 41. Creatinine remains with 1.7. So I think, we need to cut down on the vancomycin if her creatinine is 1.7. C. difficile is negative in the past. Creatinine is 1.7, so it is elevated. White count 7.6. Blood culture came out positive and is coagulase-negative Staph and chest x-ray. They did a lower extremity ultrasound report of which is pending at this time. There was foot x-ray done, and the foot x-ray shows cortical irregularity at the posterior and plantar aspects of the left calcaneus, suspicious for osteomyelitis. Left calcaneus is suspicious for osteomyelitis. She had a head CT. The head CT shows no evidence of acute intracranial hemorrhage, mass effect, or midline shift. Findings suggestive of old right external capsular infarction, volume loss and chronic microvascular ischemic changes. So, there is nothing acute here. She also had a tibia and fibula x-ray today which shows no definite evidence of any active osteomyelitis, so it is not in the legs. She had an MRI on 04/13/2018 which reveals edematous changes are seen in the marrow of the osseous element at the bilateral knee joints, slightly greater than the right. Osteomyelitis is not favored. Questionable ulcers and mild bilateral lower extremity cellulitis that was in the leg, but it was in the feet. Left calcaneus and then she also had. We will have to look up the foot and ankle. When I visit her, I will look into MRIs. The extensive report on 04/14/2018, she had a wound culture which was Citrobacter and beta-hemolytic Strep group A and the sensitivities, the one group 2 beta hemolytic was sensitive to ampicillin, penicillin and vancomycin and the Citrobacter was very sensitive to cefazolin, cefepime, Rocephin, Cipro, ertapenem, gentamicin and Zosyn. She could have done away with in a group B strep. Citrobacter was sensitive to Unasyn. She could have just gotten Rocephin. At this time, her chest x-ray report on this admission shows no active disease. At this time, she does not have blood culture positive for coagulase-negative staph. At the time when I am dictating, the second set also came out positive. I need to re-evaluate her tomorrow. If she has a PICC line and if this infection due to PICC line is there infection from the calcaneum which left calcaneum and to review more MRIs of her legs to see she may have had multiple areas of osteomyelitis. Also, she has renal insufficiency, so I need to monitor giving vancomycin which at this point we have given 1 g today. She is on Rocephin. We will re-evaluate her medications and would get a random level in the morning of the vancomycin, so that we were able to adjust her renal condition. She already got lot of treatment with antibiotics. If that is the situation one may have to look into doing some surgical removal of osteomyelitis if possible, especially might need partial calcanectomy, but we will discuss with the physician obstetrician. The patient also came in for transient ischemic attack. We will follow. Cholo Rich MD MTDLuis Alfredo
--- NOTE | 2018-07-08 07:37 | CARD ---
APPROVED REPORT Date of service: 07/05/2018 EKG Measurement Heart [id number] <Conclusion> Normal sinus rhythm Left axis deviation Inferior infarct, age undetermined Anterior infarct, age undetermined Abnormal ECG
--- NOTE | 2018-07-08 07:46 | CP.PCM.PN ---
Subjective - Date & Time of Evaluation Date of Evaluation: 07/08/18 Time of Evaluation: 08:00 - Subjective Subjective: Medicine Progress Note for Dr. Diony Marte's Service: Patient was seen and examined at bedside in the AM. Patient states she feels slightly better today. Patient continues to have right sided weakness and some slurred speech. Objective - Vital Signs/Intake and Output Vital Signs (last 24 hours): Temp Pulse Resp BP Pulse Ox 98.6 F 75 20 163/81 H 95 07/07/18 23:35 07/08/18 04:17 07/07/18 23:35 07/07/18 23:35 07/07/18 23:35 Intake and Output: 07/08/18 07/08/18 06:59 18:59 Intake Total 960 Output Total 1400 Balance -440 - Medications Medications: Current Medications Amlodipine Besylate (Norvasc) 5 mg PO DAILY COUNT INCLUDES [facility] Last Admin: 07/07/18 11:00 Dose: Not Given Aspirin (Aspirin) 325 mg PO DAILY COUNT INCLUDES [facility] Last Admin: 07/07/18 11:00 Dose: Not Given Aspirin (Aspirin Chewable) 81 mg PO DAILY COUNT [facility]CLUDES [facility] Last Admin: 07/07/18 11:00 Dose: Not Given Enoxaparin Sodium (Lovenox) 30 mg SC DAILY COUNT [facility]CLUD[facility] Last Admin: 07/07/18 11:00 Dose: 30 mg Fluconazole (Diflucan) 100 mg PO DAILY COUNT [facility]CLUD[facility] THE [facility]; Protocol Last Admin: 07/07/18 11:00 Dose: Not Given Gabapentin (Neurontin) 400 mg PO HS COUNT [facility]CLUDES THE [facility] Last Admin: 07/07/18 22:14 Dose: 400 mg Sodium Chloride (Sodium Chloride 0.45%) 1,000 mls @ 60 mls/hr IV .[id number] COUNT INCLUDES THE [facility] Last Admin: 07/08/18 05:47 Dose: 60 mls/hr Ceftriaxone Sodium 1 gm/ (Sodium Chloride) 100 mls @ 100 mls/hr IVPB DAILY COUNT [facility]CLUDES [facility] Last Admin: 07/07/18 13:15 Dose: 100 mls/hr Vancomycin HCl 1 gm/ Sodium (Chloride) 250 mls @ 166.7 mls/hr IVPB Q24H COUNT [facility]CLUDES THE [facility]; Protocol Last Admin: 07/07/18 13:16 Dose: 166.7 mls/hr Levothyroxine Sodium (Synthroid) 100 mcg PO DAILY@0630 COUNT [facility]CLUDES [facility] Last Admin: 07/08/18 05:48 Dose: 100 mcg Metoprolol Succinate (Toprol Xl) 100 mg PO DAILY COUNT [facility]CLUDES [facility] Last Admin: 07/07/18 11:00 Dose: Not Given Mirtazapine (Remeron) 15 mg PO [facility] Last Admin: 07/07/18 22:14 Dose: 15 mg Ondansetron HCl (Zofran Inj) 4 mg IVP Q6 PRN PRN Reason: Nausea/Vomiting Pantoprazole Sodium (Protonix Ec Tab) 40 mg PO DAILY COUNT [facility]CLUDES [facility] Last Admin: 07/07/18 11:00 Dose: Not Given Rosuvastatin Calcium (Crestor) 10 mg PO [facility] Last Admin: 07/07/18 22:14 Dose: 10 mg Silver Sulfadiazine (Silvadene 1% 20 Gm) 1 ea TOP DAILY COUNT INCLUDES THE [facility] - Labs Labs: 07/05/18 19:30 07/05/18 19:30 - Constitutional Appears: No Acute Distress - Head Exam Head Exam: ATRAUMATIC, NORMAL INSPECTION - Eye Exam Eye Exam: EOMI, Normal appearance - ENT Exam ENT Exam: Mucous Membranes Moist - Respiratory Exam Respiratory Exam: Clear to Ausculation Bilateral, NORMAL BREATHING PATTERN - Cardiovascular Exam Cardiovascular Exam: REGULAR RHYTHM, +S1, +S2 - GI/Abdominal Exam GI & Abdominal Exam: Soft, Normal Bowel Sounds. absent: Tenderness - Extremities Exam Extremities Exam: absent: Pedal Edema Additional comments: bandages b/l feet c/d/i - Neurological Exam Neurological Exam: Alert, Awake, CN II-XII Intact, Oriented x3 Neuro motor strength exam: Left Upper Extremity: 4, Right Upper Extremity: 3, Left Lower Extremity: 4, Right Lower Extremity: 3 - Psychiatric Exam Psychiatric exam: Normal Affect - Skin Skin Exam: Normal Color Assessment and Plan - Assessment and Plan (Free Text) Assessment: 63 year old female with a past medical history of hypertension, hyperlipidemia, and rheumatoid arthritis) presented with sympotms of new onset slurred speech prior to coming into the hospital. Patient was also altered during this episode. TIA - GCS 12 on admission - Neurology Dr. Vaughn consulted--> Help appreciated - Images: * Head CT :No evidence of acute intracranial hemorrhage mass effect or midline shift. 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 Volume loss and chronic microvascular ischemic changes. * ECHO (07/07/18): EF 65%; borderline concentric left ventricular hypertrophy. - Medications: * ASA 81mg po daily History of Osteomyellitis of the left calcaneus Afebrile, WBC 4.6 - Podiatry Consult: Dr. Torrez --> help appreciated - ID Consult: Dr. Rich --> help appreciated - Blood Culture: Gram Positive Cocci --> f/u final report - Images: * B/L foot/ankle x-ray: Cortical irregularity at the posterior and plantar aspect of the left calcaneus suspicious for osteomyelitis. * B/L tib/fibula x-ray: No definite radiographic evidence of active osteomyelitis. * B/L ROXY/PVR: Ordered - B/L feet dressed with betadine and DSD; Multipodous boot. - Medications: * Vancomycin 1gm IVPB Q24H * Ceftriaxone 1gm IVPB DAILY * Silvadene 1 ea TOP DAILY History of Hypertension - Images: * Chest Xray: No active disease. * ECHO (07/07/18): EF 65%; borderline concentric left ventricular hypertrophy. - Medications: * Amlodipine 5mg PO DAILY * Metoprolol 100mg PO DAILY History of Hyperlipidemia - Continue Crestor 10mg PO HS - f/u Lipid Panel and hA1c History of Neuropathy - Continue Gabapentin 400mg PO HS History of Hypothyroidism - Continue Synthroid 100mcg PO DAILY - f/u TSH and free T4 History of Depression - Continue Mirtazapine 15mg po HS Prophylaxis - Lovenox 30mg SC daily - Protonix 40mg po daily - Florastor 250mg po daily - Pureed/Dysphagia Diet - PT/OT/Speech Therapy Disposition: Awaiting podiatry and ID recommendations. Plan discussed with Attending Dr. Collin Marte.
[2018-07-08 08:25] LABS: BASO % 0.7 % (0.0-2.0); EOS # 0.4 K/uL (0.0-0.7); EOS % 7.7 % (0.0-4.0); HEMOGLOBIN 10.4 g/dL (11.0-16.0); LYMPH # 0.5 K/uL (1.0-4.3); LYMPH % 10.3 % (20.0-40.0); MEAN CORPUSCULAR HEMOGLOBIN 28.7 pg (27.0-31.0); MEAN CORPUSCULAR HGB CONC 34.3 g/dL (33.0-37.0); MEAN PLATELET VOLUME 8.1 fL (7.2-11.7); MONO # 0.6 K/uL (0.0-0.8); MONO % 12.5 % (0.0-10.0); NEUT # 3.1 K/uL (1.8-7.0); NEUT % 68.8 % (50.0-75.0); NRBC % 0.2 % (0.0-2.0); RBC 3.62 Mil/uL (3.80-5.20); RED CELL DISTRIBUTION WIDTH 14.2 % (11.5-14.5); WHITE BLOOD COUNT 4.6 K/uL (4.8-10.8)
[2018-07-08 08:39] LABS: MEAN CELL VOLUME 83.8 fL (81.0-99.0)
[2018-07-08 08:45] LABS: ALB/GLOB RATIO 0.8 (1.0-2.1); ALBUMIN 3.2 g/dL (3.5-5.0)
[2018-07-08] MEDS: Silver Sulfadiazine 1% Cream (20 gm) TOP SCH ×2 (10:45→10:58)
[2018-07-08] MEDS: Enoxaparin 30 mg Syringe SC SCH (10:53)
[2018-07-08] MEDS: Metoprolol Succinate 100 mg XL Tab PO SCH (10:54)
[2018-07-08] MEDS: Saccharomyces Boulardi 250 mg Cap PO SCH (10:54)
[2018-07-08] MEDS: Pantoprazole 40 mg EC Tab PO SCH (10:57)
--- NOTE | 2018-07-08 13:35 | RAD ---
Date of service: 07/08/2018 PROCEDURE: Modified barium swallow study. HISTORY: Dysphagia. COMPARISON: None available. TECHNIQUE: Under fluoroscopic guidance, barium meals of various consistency were administered to the patient by the speech pathologist. FINDINGS: Mild penetration and aspiration observed with thin liquids. IMPRESSION: Mild penetration or aspiration observed with thin liquids. Please refer to the detailed report and recommendations of the speech pathologist.
--- NOTE | 2018-07-08 14:30 | CP.PCM.PN ---
Subjective - Date & Time of Evaluation Date of Evaluation: 07/08/18 Time of Evaluation: 14:00 - Subjective Subjective: dictated Objective - Vital Signs/Intake and Output Vital Signs (last 24 hours): Temp Pulse Resp BP Pulse Ox 98.0 F 84 20 145/83 95 07/08/18 07:05 07/08/18 07:45 07/08/18 07:05 07/08/18 07:05 07/08/18 07:05 Intake and Output: 07/08/18 07/08/18 06:59 18:59 Intake Total 960 Output Total 1400 Balance -440 - Medications Medications: Current Medications Amlodipine Besylate (Norvasc) 5 mg PO DAILY [facility] Last Admin: 07/08/18 10:54 Dose: 5 mg Aspirin (Aspirin Chewable) 81 mg PO DAILY [facility] Last Admin: 07/08/18 10:54 Dose: 81 mg Enoxaparin Sodium (Lovenox) 30 mg SC DAILY [facility] Last Admin: 07/08/18 10:53 Dose: 30 mg Gabapentin (Neurontin) 400 mg PO [facility] Last Admin: 07/07/18 22:14 Dose: 400 mg Ceftriaxone Sodium 1 gm/ (Sodium Chloride) 100 mls @ 100 mls/hr IVPB DAILY [facility] Last Admin: 07/08/18 10:52 Dose: 100 mls/hr Vancomycin HCl 1 gm/ Sodium (Chloride) 250 mls @ 166.7 mls/hr IVPB Q24H [facility]; Protocol Last Admin: 07/08/18 10:53 Dose: 166.7 mls/hr Levothyroxine Sodium (Synthroid) 100 mcg PO DAILY@0630 [facility] Last Admin: 07/08/18 05:48 Dose: 100 mcg Metoprolol Succinate (Toprol Xl) 100 mg PO DAILY [facility] Last Admin: 07/08/18 10:54 Dose: 100 mg Mirtazapine (Remeron) 15 mg PO HS [facility] Last Admin: 07/07/18 22:14 Dose: 15 mg Ondansetron HCl (Zofran Inj) 4 mg IVP Q6 PRN PRN Reason: Nausea/Vomiting Pantoprazole Sodium (Protonix Ec Tab) 40 mg PO DAILY [facility] Last Admin: 07/08/18 10:57 Dose: 40 mg Rosuvastatin Calcium (Crestor) 10 mg PO HS [facility] Last Admin: 07/07/18 22:14 Dose: 10 mg Saccharomyces Boulardii (Florastor) 250 mg PO DAILY [facility] Last Admin: 07/08/18 10:54 Dose: 250 mg Silver Sulfadiazine (Silvadene 1% 20 Gm) 1 ea TOP DAILY [facility] Last Admin: 07/08/18 10:58 Dose: 1 applic - Labs Labs: 07/08/18 08:15 07/08/18 08:15
--- NOTE | 2018-07-08 14:37 | VASCLAB ---
Date of service: 07/07/2018 STUDY DESCRIPTION: Lower Extremity Arterial Exam (PVR). HISTORY: B/L LE ulcerations. PRIORS: None. TECHNIQUE: Pulse volume recording waveforms and segmental pressures of bilateral lower extremities at multiple levels were obtained. Ankle Brachial Indices (ABIs) were calculated. Report prepared by JAMAICA Diaz, RVT RIGHT LOWER EXTREMITY: * Brachial artery: Pressure - 152 mmHg. * High thigh: Pressure - mmHg: Ratio - : PVR waveform - Pulsatile * Low thigh: Pressure - mmHg: Ratio - PVR waveform: Pulsatile * Calf: Pressure - 220 mmHg: Ratio - NC PVR waveform: Reduced * Posterior tibial Artery: Pressure - 220 mmHg: Ratio - NC PVR waveform: Reduced * Dorsalis pedis Artery: Pressure - 220 mmHg: Ratio - NC PVR waveform: Reduced * Great toe: Pressure - mmHg: Ratio - PVR waveform: Ankle brachial index (ROXY): NC LEFT LOWER EXTREMITY: * Brachial artery: Pressure - 136 mmHg. * High thigh: Pressure - mmHg: Ratio - : PVR waveform - Pulsatile * Low thigh: Pressure - mmHg: Ratio - PVR waveform: Pulsatile * Calf: Pressure - 220 mmHg: Ratio - NC PVR waveform: Reduced * Posterior tibial Artery: Pressure - mmHg: Ratio - PVR waveform: Reduced * Dorsalis pedis Artery: Pressure - 220 mmHg: Ratio - NC PVR waveform: Reduced * Great toe: Pressure - mmHg: Ratio - PVR waveform: Ankle brachial index (ROXY): NC OTHER FINDINGS: Right: Left: IMPRESSION: Right: The ankle pressure index of the right lower extremity is non-diagnostic due to possible arterial wall calcifications. Left: The ankle pressure index of the left lower extremity is non-diagnostic due to possible arterial wall calcifications.
--- NOTE | 2018-07-08 19:42 | PN ---
DATE: 07/08/2018 SUBJECTIVE: The patient was seen today. She was more awake. Still has voice issues. She is not able to communicate although she is Maldivian speaking. She has no PICC lines. I do not think she was getting IV antibiotics. Think that they were done with before. PHYSICAL EXAMINATION: VITAL SIGNS: Temperature is 98, pulse 79, blood pressure 145/83, respirations 20. She does have a stroke. She is bedridden. HEENT: Head is atraumatic. NECK: Supple. Facial droop present, left side. LUNGS: Clear. HEART: S1 and S2 is regular. ABDOMEN: Soft, nontender. No guarding, no rigidity present. EXTREMITIES: On both sides, she has foot protectors and has dressing on both feet. LABORATORY DATA: White count is 4.6, hemoglobin 10.4, hematocrit 30.3, platelet count is 397. Her BUN is 26, creatinine better today 1.4. We did a vancomycin random level which was 12, so we will continue that. Her TSH was 20.8. So, she is hypothyroid and the free T4 is 0.94. Clinically, she is euthyroid but TSH is up. Her blood cultures two of them had coagulase-negative staph but the repeat cultures were done prior to giving vancomycin and those are negative. It could be contaminant, but two are positive. Reminisce if they draw at the same time, I am not sure if they were done with the single PICC or and she does have foot ulcers and she was treated for osteomyelitis for 8 weeks of IV antibiotics. I will continue antibiotics at this time and reevaluate with the Podiatry eval. She has a peripheral IV that I see today. We will follow. She is here for TIA and has osteomyelitis of multiple feet bones. It is still pending to evaluate her MRI done on last admission at [place]. Cholo Rich MD
--- NOTE | 2018-07-08 20:24 | CP.PCM.PN ---
Subjective - Date & Time of Evaluation Date of Evaluation: 07/08/18 - Subjective Subjective: patient examined today no nausea, no dizziness, no diarrhea, no fever, no vomiting no shortness of breath Objective - Vital Signs/Intake and Output Vital Signs (last 24 hours): Temp Pulse Resp BP Pulse Ox 97.8 F 74 20 145/73 99 07/08/18 15:10 07/08/18 15:10 07/08/18 15:10 07/08/18 15:10 07/08/18 15:10 Intake and Output: 07/08/18 07/09/18 18:59 06:59 Intake Total 710 Output Total 700 Balance 10 - Medications Medications: Current Medications Amlodipine Besylate (Norvasc) 5 mg PO DAILY [facility] Last Admin: 07/08/18 10:54 Dose: 5 mg Aspirin (Aspirin Chewable) 81 mg PO DAILY [facility] Last Admin: 07/08/18 10:54 Dose: 81 mg Enoxaparin Sodium (Lovenox) 30 mg SC DAILY [facility] Last Admin: 07/08/18 10:53 Dose: 30 mg Gabapentin (Neurontin) 400 mg PO [facility] Last Admin: 07/07/18 22:14 Dose: 400 mg Ceftriaxone Sodium 1 gm/ (Sodium Chloride) 100 mls @ 100 mls/hr IVPB DAILY [facility] Last Admin: 07/08/18 10:52 Dose: 100 mls/hr Vancomycin HCl 1 gm/ Sodium (Chloride) 250 mls @ 166.7 mls/hr IVPB Q24H [facility]; Protocol Last Admin: 07/08/18 10:53 Dose: 166.7 mls/hr Levothyroxine Sodium (Synthroid) 112 mcg PO DAILY@0630 [facility] Metoprolol Succinate (Toprol Xl) 100 mg PO DAILY [facility] Last Admin: 07/08/18 10:54 Dose: 100 mg Mirtazapine (Remeron) 15 mg PO HS [facility] Last Admin: 07/07/18 22:14 Dose: 15 mg Ondansetron HCl (Zofran Inj) 4 mg IVP Q6 PRN PRN Reason: Nausea/Vomiting Pantoprazole Sodium (Protonix Ec Tab) 40 mg PO DAILY [facility] Last Admin: 07/08/18 10:57 Dose: 40 mg Rosuvastatin Calcium (Crestor) 10 mg PO [facility] Last Admin: 07/07/18 22:14 Dose: 10 mg Saccharomyces Boulardii (Florastor) 250 mg PO DAILY [facility] Last Admin: 07/08/18 10:54 Dose: 250 mg Silver Sulfadiazine (Silvadene 1% 20 Gm) 1 ea TOP DAILY [facility] Last Admin: 07/08/18 10:58 Dose: 1 applic - Labs Labs: 07/08/18 08:15 07/08/18 08:15 - Constitutional Appears: Well - Head Exam Head Exam: ATRAUMATIC, NORMAL INSPECTION, NORMOCEPHALIC - Eye Exam Eye Exam: EOMI, Normal appearance, PERRL Pupil Exam: NORMAL ACCOMODATION, PERRL - ENT Exam ENT Exam: Mucous Membranes Moist, Normal Exam - Neck Exam Neck Exam: Full ROM, Normal Inspection. absent: Lymphadenopathy - Respiratory Exam Respiratory Exam: Decreased Breath Sounds - Cardiovascular Exam Cardiovascular Exam: REGULAR RHYTHM, +S1, +S2 - GI/Abdominal Exam GI & Abdominal Exam: Soft, Diminished Bowel Sounds - Rectal Exam Rectal Exam: Deferred - Neurological Exam Neurological Exam: Oriented x3 Assessment and Plan - Assessment and Plan (Free Text) Plan: plan discussed with patient moderate complexity of care medications reviewed labs reviewed vitals reviewed aspirin aspirin chewable ceftriaxone sodium crestor diflucan lovenox neurontin norvasc protonix ec tab remeron silvadene sodium chloride synthroid toprol xl vancomycin zofran inj
--- NOTE | 2018-07-09 07:20 | CP.PCM.PN ---
Subjective - Date & Time of Evaluation Date of Evaluation: 07/09/18 Time of Evaluation: 08:00 - Subjective Subjective: Medicine Progress Note for Dr. Diony Marte's Service: Patient was seen and examined at bedside in the AM. Patient continues to have residual right sided weakness and some slurred speech. Patient denies chest pain, shortness of breath, nausea, vomiting, fever or chills. Objective - Vital Signs/Intake and Output Vital Signs (last 24 hours): Temp Pulse Resp BP Pulse Ox 98.6 F 78 20 146/76 95 07/08/18 23:00 07/09/18 04:00 07/08/18 23:00 07/08/18 23:00 07/08/18 23:00 Intake and Output: 07/09/18 07/09/18 06:59 18:59 Output Total 700 Balance -700 - Medications Medications: Current Medications Amlodipine Besylate (Norvasc) 5 mg PO DAILY [facility] Last Admin: 07/08/18 10:54 Dose: 5 mg Aspirin (Aspirin Chewable) 81 mg PO DAILY [facility] Last Admin: 07/08/18 10:54 Dose: 81 mg Enoxaparin Sodium (Lovenox) 30 mg SC DAILY [facility] Last Admin: 07/08/18 10:53 Dose: 30 mg Gabapentin (Neurontin) 400 mg PO HS [facility] Last Admin: 07/08/18 22:48 Dose: 400 mg Ceftriaxone Sodium 1 gm/ (Sodium Chloride) 100 mls @ 100 mls/hr IVPB DAILY [facility] Last Admin: 07/08/18 10:52 Dose: 100 mls/hr Vancomycin HCl 1 gm/ Sodium (Chloride) 250 mls @ 166.7 mls/hr IVPB Q24H [facility]; Protocol Last Admin: 07/08/18 10:53 Dose: 166.7 mls/hr Levothyroxine Sodium (Synthroid) 112 mcg PO DAILY@0630 [facility] Metoprolol Succinate (Toprol Xl) 100 mg PO DAILY [facility] Last Admin: 07/08/18 10:54 Dose: 100 mg Mirtazapine (Remeron) 15 mg PO HS [facility] Last Admin: 07/08/18 22:41 Dose: 15 mg Ondansetron HCl (Zofran Inj) 4 mg IVP Q6 PRN PRN Reason: Nausea/Vomiting Pantoprazole Sodium (Protonix Ec Tab) 40 mg PO DAILY [facility] Last Admin: 07/08/18 10:57 Dose: 40 mg Rosuvastatin Calcium (Crestor) 10 mg PO HS [facility] Last Admin: 07/08/18 22:41 Dose: 10 mg Saccharomyces Boulardii (Florastor) 250 mg PO DAILY [facility] Last Admin: 07/08/18 10:54 Dose: 250 mg Silver Sulfadiazine (Silvadene 1% 20 Gm) 1 ea TOP DAILY [facility] Last Admin: 07/08/18 10:58 Dose: 1 applic - Labs Labs: 07/08/18 08:15 07/08/18 08:15 - Constitutional Appears: No Acute Distress - Head Exam Head Exam: ATRAUMATIC, NORMAL INSPECTION - Eye Exam Eye Exam: EOMI, Normal appearance - ENT Exam ENT Exam: Mucous Membranes Moist - Respiratory Exam Respiratory Exam: NORMAL BREATHING PATTERN - Cardiovascular Exam Cardiovascular Exam: REGULAR RHYTHM, +S1, +S2 - GI/Abdominal Exam GI & Abdominal Exam: Soft, Normal Bowel Sounds. absent: Tenderness - Neurological Exam Neurological Exam: Alert, Awake, Oriented x3 Neuro motor strength exam: Left Upper Extremity: 4, Right Upper Extremity: 3, Left Lower Extremity: 4, Right Lower Extremity: 3 - Psychiatric Exam Psychiatric exam: Normal Affect Assessment and Plan - Assessment and Plan (Free Text) Assessment: 63 year old female with a past medical history of hypertension, hyperlipidemia, and rheumatoid arthritis) presented with sympotms of new onset slurred speech prior to coming into the hospital. Patient was also altered during this episode. History of Osteomyellitis of the left calcaneus Afebrile, WBC 4.6 - Podiatry Consult: Dr. Torrez --> help appreciated * No surgical intervention at this time - ID Consult: Dr. Rich --> help appreciated - Blood Culture: Gram Positive Cocci --> f/u final report - Images: * B/L foot/ankle x-ray: Cortical irregularity at the posterior and plantar aspect of the left calcaneus suspicious for osteomyelitis. * B/L tib/fibula x-ray: No definite radiographic evidence of active osteomyelitis. * B/L ROXY/PVR: Ordered - B/L feet dressed with betadine and DSD; Multipodous boot. - Medications: * Vancomycin 1gm IVPB Q24H * Ceftriaxone 1gm IVPB DAILY * Silvadene 1 ea TOP DAILY TIA - GCS 12 on admission - Neurology Dr. Vaughn consulted--> Help appreciated - Images: * Head CT :No evidence of acute intracranial hemorrhage mass effect or midline shift. 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 Volume loss and chronic microvascular ischemic changes. * ECHO (07/07/18): EF 65%; borderline concentric left ventricular hypertrophy. - Medications: * ASA 81mg po daily History of Hypertension - Images: * Chest Xray: No active disease. * ECHO (07/07/18): EF 65%; borderline concentric left ventricular hypertrophy. - Medications: * Amlodipine 5mg PO DAILY * Metoprolol 100mg PO DAILY History of Hyperlipidemia - Continue Crestor 10mg PO HS - Lipid Panel: Total Cholesterol 152; LDL 97; HDL 32 Impaired Glucose Tolerance - hA1c: 5.9 - Heart Healthy/Low Carbohydrate Diet History of Neuropathy - Continue Gabapentin 400mg PO HS History of Hypothyroidism - Increased Synthroid 112mcg PO DAILY - TSH 20.80 and free T4 0.94 - Patient to repeat TSH levels in 4 weeks as an outpatient History of Depression - Continue Mirtazapine 15mg po HS Prophylaxis - Lovenox 30mg SC daily - Protonix 40mg po daily - Florastor 250mg po daily - Pureed/Dysphagia/Low Carb/Heart Healthy Diet - PT/OT/Speech Therapy Disposition: Awaiting ID recommendations for length of antibiotics. Patient has been cleared from podiatry and neurology. Plan discussed with Attending Dr. Collin Marte. Fariha Kumar PGY-2
[2018-07-09 07:21] LABS: BASO % 0.7 % (0.0-2.0); EOS # 0.4 K/uL (0.0-0.7); HEMOGLOBIN 10.3 g/dL (11.0-16.0); LYMPH # 0.6 K/uL (1.0-4.3); LYMPH % 13.1 % (20.0-40.0); MEAN CELL VOLUME 83.6 fL (81.0-99.0); MEAN CORPUSCULAR HEMOGLOBIN 28.5 pg (27.0-31.0); MEAN CORPUSCULAR HGB CONC 34.1 g/dL (33.0-37.0); MEAN PLATELET VOLUME 8.1 fL (7.2-11.7); MONO # 0.5 K/uL (0.0-0.8); MONO % 11.1 % (0.0-10.0); NEUT # 3.2 K/uL (1.8-7.0); NEUT % 67.1 % (50.0-75.0); NRBC % 0.1 % (0.0-2.0); RBC 3.61 Mil/uL (3.80-5.20); RED CELL DISTRIBUTION WIDTH 14.3 % (11.5-14.5); WHITE BLOOD COUNT 4.8 K/uL (4.8-10.8)
[2018-07-09 07:40] LABS: ALB/GLOB RATIO 0.8 (1.0-2.1); ALBUMIN 3.1 g/dL (3.5-5.0); CALCIUM 8.7 mg/dl (8.6-10.4)
[2018-07-09] MEDS: Levothyroxine 112 MCG TAB PO SCH (07:47)
[2018-07-09] MEDS: Pantoprazole 40 mg EC Tab PO SCH (09:48)
[2018-07-09] MEDS: Enoxaparin 30 mg Syringe SC SCH (09:48)
[2018-07-09] MEDS: Saccharomyces Boulardi 250 mg Cap PO SCH (09:49)
[2018-07-09] MEDS: Metoprolol Succinate 100 mg XL Tab PO SCH (09:49)
[2018-07-09] MEDS: Silver Sulfadiazine 1% Cream (20 gm) TOP SCH (14:38)
--- NOTE | 2018-07-09 14:54 | CP.PCM.PN ---
Subjective - Date & Time of Evaluation Date of Evaluation: 07/09/18 - Subjective Subjective: patient seen and examined today no dizziness no nausea no diarrhea no fever no vomiting no shortness of breath Objective - Vital Signs/Intake and Output Vital Signs (last 24 hours): Temp Pulse Resp BP Pulse Ox 98.3 F 73 20 124/76 97 07/09/18 08:06 07/09/18 10:00 07/09/18 08:06 07/09/18 08:06 07/09/18 08:06 Intake and Output: 07/09/18 07/09/18 06:59 18:59 Output Total 700 Balance -700 - Medications Medications: Current Medications Amlodipine Besylate (Norvasc) 5 mg PO DAILY [facility] Last Admin: 07/09/18 09:49 Dose: 5 mg Aspirin (Aspirin Chewable) 81 mg PO DAILY [facility] Last Admin: 07/09/18 09:49 Dose: 81 mg Enoxaparin Sodium (Lovenox) 30 mg SC DAILY [facility] Last Admin: 07/09/18 09:48 Dose: 30 mg Gabapentin (Neurontin) 400 mg PO HS [facility] Last Admin: 07/08/18 22:48 Dose: 400 mg Ceftriaxone Sodium 1 gm/ (Sodium Chloride) 100 mls @ 100 mls/hr IVPB DAILY [facility] Last Admin: 07/09/18 09:49 Dose: 100 mls/hr Vancomycin HCl 1 gm/ Sodium (Chloride) 250 mls @ 166.7 mls/hr IVPB Q24H [facility]; Protocol Last Admin: 07/09/18 11:59 Dose: 166.7 mls/hr Levothyroxine Sodium (Synthroid) 112 mcg PO DAILY@0630 [facility] Last Admin: 07/09/18 07:47 Dose: 112 mcg Metoprolol Succinate (Toprol Xl) 100 mg PO DAILY [facility] Last Admin: 07/09/18 09:49 Dose: 100 mg Mirtazapine (Remeron) 15 mg PO HS [facility] Last Admin: 07/08/18 22:41 Dose: 15 mg Ondansetron HCl (Zofran Inj) 4 mg IVP Q6 PRN PRN Reason: Nausea/Vomiting Pantoprazole Sodium (Protonix Ec Tab) 40 mg PO DAILY [facility] Last Admin: 07/09/18 09:48 Dose: 40 mg Rosuvastatin Calcium (Crestor) 10 mg PO HS [facility] Last Admin: 07/08/18 22:41 Dose: 10 mg Saccharomyces Boulardii (Florastor) 250 mg PO DAILY [facility] Last Admin: 07/09/18 09:49 Dose: 250 mg Silver Sulfadiazine (Silvadene 1% 20 Gm) 1 ea TOP DAILY [facility] Last Admin: 07/09/18 14:38 Dose: 1 applic - Labs Labs: 07/09/18 07:03 07/09/18 07:03 - Constitutional Appears: Well - Head Exam Head Exam: ATRAUMATIC, NORMAL INSPECTION, NORMOCEPHALIC - Eye Exam Eye Exam: EOMI, Normal appearance, PERRL Pupil Exam: NORMAL ACCOMODATION, PERRL - ENT Exam ENT Exam: Mucous Membranes Moist, Normal Exam - Neck Exam Neck Exam: Full ROM, Normal Inspection. absent: Lymphadenopathy - Respiratory Exam Respiratory Exam: Decreased Breath Sounds - Cardiovascular Exam Cardiovascular Exam: REGULAR RHYTHM, +S1, +S2 - GI/Abdominal Exam GI & Abdominal Exam: Soft, Diminished Bowel Sounds - Rectal Exam Rectal Exam: Deferred
--- NOTE | 2018-07-09 15:20 | CP.PCM.PN ---
Subjective - Date & Time of Evaluation Date of Evaluation: 07/09/18 Time of Evaluation: 15:00 - Subjective Subjective: dictated Objective - Vital Signs/Intake and Output Vital Signs (last 24 hours): Temp Pulse Resp BP Pulse Ox 98.3 F 73 20 124/76 97 07/09/18 08:06 07/09/18 10:00 07/09/18 08:06 07/09/18 08:06 07/09/18 08:06 Intake and Output: 07/09/18 07/09/18 06:59 18:59 Output Total 700 Balance -700 - Medications Medications: Current Medications Amlodipine Besylate (Norvasc) 5 mg PO DAILY [facility] Last Admin: 07/09/18 09:49 Dose: 5 mg Aspirin (Aspirin Chewable) 81 mg PO DAILY [facility] Last Admin: 07/09/18 09:49 Dose: 81 mg Enoxaparin Sodium (Lovenox) 30 mg SC DAILY [facility] Last Admin: 07/09/18 09:48 Dose: 30 mg Gabapentin (Neurontin) 400 mg PO HS [facility] Last Admin: 07/08/18 22:48 Dose: 400 mg Ceftriaxone Sodium 1 gm/ (Sodium Chloride) 100 mls @ 100 mls/hr IVPB DAILY [facility] Last Admin: 07/09/18 09:49 Dose: 100 mls/hr Vancomycin HCl 1 gm/ Sodium (Chloride) 250 mls @ 166.7 mls/hr IVPB Q24H [facility]; Protocol Last Admin: 07/09/18 11:59 Dose: 166.7 mls/hr Levothyroxine Sodium (Synthroid) 112 mcg PO DAILY@0630 [facility] Last Admin: 07/09/18 07:47 Dose: 112 mcg Metoprolol Succinate (Toprol Xl) 100 mg PO DAILY [facility] Last Admin: 07/09/18 09:49 Dose: 100 mg Mirtazapine (Remeron) 15 mg PO HS [facility] Last Admin: 07/08/18 22:41 Dose: 15 mg Ondansetron HCl (Zofran Inj) 4 mg IVP Q6 PRN PRN Reason: Nausea/Vomiting Pantoprazole Sodium (Protonix Ec Tab) 40 mg PO DAILY [facility] Last Admin: 07/09/18 09:48 Dose: 40 mg Rosuvastatin Calcium (Crestor) 10 mg PO HS [facility] Last Admin: 07/08/18 22:41 Dose: 10 mg Saccharomyces Boulardii (Florastor) 250 mg PO DAILY [facility] Last Admin: 07/09/18 09:49 Dose: 250 mg Silver Sulfadiazine (Silvadene 1% 20 Gm) 1 ea TOP DAILY [facility] Last Admin: 07/09/18 14:38 Dose: 1 applic - Labs Labs: 07/09/18 07:03 07/09/18 07:03
[2018-07-09] MEDS: Tmp-Smz 800 mg-160 mg DS Tab PO SCH (16:02)
--- NOTE | 2018-07-09 16:02 | PN ---
DATE: 07/09/2018 INFECTIOUS DISEASE FOLLOWUP NOTE SUBJECTIVE: The patient remains awake, but is nonverbal. No dizziness. No nausea, no vomiting. 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 Podiatry signed out on her. PHYSICAL EXAMINATION: VITAL SIGNS: She is afebrile. T-max is 98.3, pulse 73, blood pressure 124/76, respirations are 20, saturation is 97%. HEENT: Head is atraumatic, normocephalic. She has some facial droop. NECK: Supple. JVP is flat. LUNGS: Clear. HEART: S1 and S2 is regular. ABDOMEN: Soft, nontender. No guarding, no rigidity present. EXTREMITIES: She has, on the right heel, as a unstageable ulcer; and on the left lateral area, ulceration present. The foot is suspicion for osteomyelitis; and on both tibia and fibula, there is no active osteomyelitis. ASSESSMENT AND PLAN: So, she has received antibiotics for more than 10 weeks. For osteomyelitis, I do not think antibiotics are going to make any difference. She had staph epidermidis on two sets here, but the repeat cultures were negative, so I assume that it was contaminant, however, at this time, I would send her on Bactrim which will cover the staph that she had which may be the organisms which are present, and if she does not improve withe Podiatry, they have to decide whether they want to do a definitive bone dissection or partial calcanectomy. Her creatinine is 1.4; vancomycin, I will discontinue at this time and send her on Bactrim 1 tablet p.o. b.i.d. for 10 days. Cholo Rich MD
[2018-07-10] MEDS: Tmp-Smz 800 mg-160 mg DS Tab PO SCH (03:56)
[2018-07-10] MEDS: Levothyroxine 112 MCG TAB PO SCH (06:58)
--- NOTE | 2018-07-10 07:23 | CP.PCM.PN ---
Subjective - Date & Time of Evaluation Date of Evaluation: 07/10/18 Time of Evaluation: 07:23 - Subjective Subjective: Medicine Progress Note for Dr. Diony Marte's Service: Patient was seen and examined at bedside in the AM. Patient continues to have residual right sided weakness and some slurred speech. Patient denies chest pain, shortness of breath, nausea, vomiting, fever or chills. Objective - Vital Signs/Intake and Output Vital Signs (last 24 hours): Temp Pulse Resp BP Pulse Ox 98 F 70 20 145/79 97 07/09/18 23:35 07/10/18 01:00 07/09/18 23:35 07/09/18 23:35 07/09/18 23:35 Intake and Output: 07/10/18 07/10/18 06:59 18:59 Output Total 900 Balance -900 - Medications Medications: Current Medications Amlodipine Besylate (Norvasc) 5 mg PO DAILY [facility] Last Admin: 07/09/18 09:49 Dose: 5 mg Aspirin (Aspirin Chewable) 81 mg PO DAILY [facility] Last Admin: 07/09/18 09:49 Dose: 81 mg Enoxaparin Sodium (Lovenox) 30 mg SC DAILY [facility] Last Admin: 07/09/18 09:48 Dose: 30 mg Gabapentin (Neurontin) 400 mg PO HS [facility] Last Admin: 07/09/18 21:35 Dose: 400 mg Levothyroxine Sodium (Synthroid) 112 mcg PO DAILY@0630 [facility] Last Admin: 07/10/18 06:58 Dose: 112 mcg Metoprolol Succinate (Toprol Xl) 100 mg PO DAILY [facility] Last Admin: 07/09/18 09:49 Dose: 100 mg Mirtazapine (Remeron) 15 mg PO HS [facility] Last Admin: 07/09/18 21:35 Dose: 15 mg Ondansetron HCl (Zofran Inj) 4 mg IVP Q6 PRN PRN Reason: Nausea/Vomiting Pantoprazole Sodium (Protonix Ec Tab) 40 mg PO DAILY [facility] Last Admin: 07/09/18 09:48 Dose: 40 mg Rosuvastatin Calcium (Crestor) 10 mg PO HS [facility] Last Admin: 07/09/18 21:35 Dose: 10 mg Saccharomyces Boulardii (Florastor) 250 mg PO DAILY [facility] Last Admin: 07/09/18 09:49 Dose: 250 mg Silver Sulfadiazine (Silvadene 1% 20 Gm) 1 ea TOP DAILY [facility] Last Admin: 07/09/18 14:38 Dose: 1 applic Trimethoprim/Sulfamethoxazole (Bactrim Ds Tab) 1 tab PO Q12H [facility]; Protocol Last Admin: 07/10/18 03:56 Dose: 1 tab - Labs Labs: 07/09/18 07:03 07/09/18 07:03 - Head Exam Head Exam: NORMAL INSPECTION, NORMOCEPHALIC - Eye Exam Eye Exam: EOMI, Normal appearance Pupil Exam: NORMAL ACCOMODATION, PERRL - ENT Exam ENT Exam: Mucous Membranes Moist, Normal Exam - Respiratory Exam Respiratory Exam: Clear to Ausculation Bilateral, NORMAL BREATHING PATTERN - Cardiovascular Exam Cardiovascular Exam: REGULAR RHYTHM, +S1, +S2 - GI/Abdominal Exam GI & Abdominal Exam: Soft, Normal Bowel Sounds. absent: Tenderness, Diminished Bowel Sounds - Extremities Exam Extremities Exam: Normal Capillary Refill, Normal Inspection - Back Exam Back Exam: NORMAL INSPECTION - Neurological Exam Neurological Exam: Awake, CN II-XII Intact, Normal Gait, Oriented x3 - Psychiatric Exam Psychiatric exam: Normal Affect, Normal Mood - Skin Skin Exam: Dry, Normal Color, Warm Assessment and Plan - Assessment and Plan (Free Text) Plan: 63 year old female with a past medical history of hypertension, hyperlipidemia, and rheumatoid arthritis) presented with sympotms of new onset slurred speech prior to coming into the hospital. Patient was also altered during this epi sode. History of Osteomyellitis of the left calcaneus Afebrile, WBC 4.6 - Podiatry Consult: Dr. Torrez --> help appreciated No surgical intervention at this time - ID Consult: Dr. Rich --> help appreciated - Blood Culture: Gram Positive Cocci --> f/u final report - Images: B/L foot/ankle x-ray: Cortical irregularity at the posterior and plantar aspect of the left calcaneus suspicious for osteomyelitis. B/L tib/fibula x-ray: No definite radiographic evidence of active osteomyelitis. B/L ROXY/PVR: Ordered - B/L feet dressed with betadine and DSD; Multipodous boot. - Medications: Vancomycin 1gm IVPB Q24H Ceftriaxone 1gm IVPB DAILY Silvadene 1 ea TOP DAILY - Spoke with Dr. Rich 07/09/18 --> patient to start Bactrim 400/80mg po bid for 10 days. TIA - GCS 12 on admission - Neurology Dr. Vaughn consulted--> Help appreciated - Images: Head CT :No evidence of acute intracranial hemorrhage mass effect or midline shift. 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 Volume loss and chronic microvascular ischemic changes. ECHO (07/07/18): EF 65%; borderline concentric left ventricular hypertrophy. - Medications: ASA 81mg po daily History of Hypertension - Images: Chest Xray: No active disease. ECHO (07/07/18): EF 65%; borderline concentric left ventricular hypertrophy. - Medications: Amlodipine 5mg PO DAILY Metoprolol 100mg PO DAILY History of Hyperlipidemia - Continue Crestor 10mg PO HS - Lipid Panel: Total Cholesterol 152; LDL 97; HDL 32 Impaired Glucose Tolerance - hA1c: 5.9 - Heart Healthy/Low Carbohydrate Diet History of Neuropathy - Continue Gabapentin 400mg PO HS History of Hypothyroidism - Increased Synthroid 112mcg PO DAILY - TSH 20.80 and free T4 0.94 - Patient to repeat TSH levels in 4 weeks as an outpatient History of Depression - Continue Mirtazapine 15mg po HS Prophylaxis - Lovenox 30mg SC daily - Protonix 40mg po daily - Florastor 250mg po daily - Pureed/Dysphagia/Low Carb/Heart Healthy Diet - PT/OT/Speech Therapy Disposition: Patient for discharge to [facility]. Discharge Instructions: Bactrim 400/80mg po bid for 10 days. Patient to follow up with Dr. Torrez within 1 week Change dressing daily with betadine, dsd, and kerlix. Offloading multipodus must be worn at all times while in bed Patient's thyroid medication was changed: Increased Synthroid 112mcg PO DAILY Thyroid Lab Values (07/08/18) --> TSH 20.80 and free T4 0.94 Please repeat TSH levels in 4 weeks. Dispo: Patient discharged to [facility]. Patient needs to complete Bactrim 400/80mg PO BID X 10DAYS. Plan discussed with Attending Dr. Collin Marte. Joao Mosley, PGY2
[2018-07-10 08:46] LABS: BASO % 0.5 % (0.0-2.0); EOS # 0.4 K/uL (0.0-0.7); EOS % 7.1 % (0.0-4.0); HEMOGLOBIN 10.7 g/dL (11.0-16.0); LYMPH # 0.5 K/uL (1.0-4.3); LYMPH % 10.2 % (20.0-40.0); MEAN CELL VOLUME 83.9 fL (81.0-99.0); MEAN CORPUSCULAR HEMOGLOBIN 28.7 pg (27.0-31.0); MEAN CORPUSCULAR HGB CONC 34.3 g/dL (33.0-37.0); MEAN PLATELET VOLUME 8.1 fL (7.2-11.7); MONO # 0.6 K/uL (0.0-0.8); NEUT # 3.8 K/uL (1.8-7.0); NEUT % 70.2 % (50.0-75.0); NRBC % 0.1 % (0.0-2.0); RBC 3.72 Mil/uL (3.80-5.20); WHITE BLOOD COUNT 5.3 K/uL (4.8-10.8)
[2018-07-10] MEDS: Metoprolol Succinate 100 mg XL Tab PO SCH (09:26)
[2018-07-10 09:27] LABS: ALB/GLOB RATIO 0.7 (1.0-2.1); ALBUMIN 3.1 g/dL (3.5-5.0); CALCIUM 9.1 mg/dl (8.6-10.4)
[2018-07-10] MEDS: Enoxaparin 30 mg Syringe SC SCH (09:27)
[2018-07-10] MEDS: Silver Sulfadiazine 1% Cream (20 gm) TOP SCH (09:27)
[2018-07-10] MEDS: Saccharomyces Boulardi 250 mg Cap PO SCH (09:27)
[2018-07-10] MEDS ORDERED: Pantoprazole 40 mg Susp UD PO SCH (10:00)
--- NOTE | 2018-07-10 12:40 | CP.PCM.PN ---
Subjective - Date & Time of Evaluation Date of Evaluation: 07/09/18 Time of Evaluation: 11:00 - Subjective Subjective: Podiatry progress note- attending Dr. Torrez: 62 year old female with a past medical history of Rheumatoid arthritis, hypertension and hypercholesterolemia seen and evaluated for b/l LE stable ulcerations with underlying OM. Patient is seen resting comfortably in bed with dressing clean dry and intact with multipodus boots. Patient expresses pain with palpation to the lower extremity. Denies nausea, fever, shortness of breath, ch est pain or chills. Objective - Vital Signs/Intake and Output Vital Signs (last 24 hours): Temp Pulse Resp BP Pulse Ox 98.2 F 77 20 123/74 96 07/10/18 07:12 07/10/18 09:26 07/10/18 09:26 07/10/18 09:26 07/10/18 09:26 Intake and Output: 07/10/18 07/10/18 06:59 18:59 Output Total 900 Balance -900 - Medications Medications: Current Medications Amlodipine Besylate (Norvasc) 5 mg PO DAILY [facility] Last Admin: 07/10/18 09:27 Dose: 5 mg Aspirin (Aspirin Chewable) 81 mg PO DAILY [facility] Last Admin: 07/10/18 09:27 Dose: 81 mg Enoxaparin Sodium (Lovenox) 30 mg SC DAILY [facility] Last Admin: 07/10/18 09:27 Dose: 30 mg Gabapentin (Neurontin) 400 mg PO HS [facility] Last Admin: 07/09/18 21:35 Dose: 400 mg Levothyroxine Sodium (Synthroid) 112 mcg PO DAILY@0630 [facility] Last Admin: 07/10/18 06:58 Dose: 112 mcg Metoprolol Succinate (Toprol Xl) 100 mg PO DAILY [facility] Last Admin: 07/10/18 09:26 Dose: 100 mg Mirtazapine (Remeron) 15 mg PO [facility] Last Admin: 07/09/18 21:35 Dose: 15 mg Ondansetron HCl (Zofran Inj) 4 mg IVP Q6 PRN PRN Reason: Nausea/Vomiting Pantoprazole Sodium (Protonix Susp) 40 mg PO DAILY [facility] Last Admin: 07/10/18 09:27 Dose: 40 mg Rosuvastatin Calcium (Crestor) 10 mg PO [facility] Last Admin: 07/09/18 21:35 Dose: 10 mg Saccharomyces Boulardii (Florastor) 250 mg PO DAILY [facility] Last Admin: 07/10/18 09:27 Dose: 250 mg Silver Sulfadiazine (Silvadene 1% 20 Gm) 1 ea TOP DAILY [facility] Last Admin: 07/10/18 09:27 Dose: 1 applic Trimethoprim/Sulfamethoxazole (Bactrim Ds Tab) 1 tab PO Q12H [facility]; Protocol Last Admin: 07/10/18 03:56 Dose: 1 tab - Labs Labs: 07/10/18 08:36 07/10/18 08:36 - Constitutional Appears: Well, Non-toxic, No Acute Distress - Extremities Exam Extremities Exam: absent: Calf Tenderness - Back Exam Additional comments: B/L lower extremity focused exam: Vascular: DP/PT are 2/4 b/l, Cap refill < 3 seconds to all digits, Temp gradient warm to cool from proximal to distal b/l, no edema appreciated to b/l extremities. Neuro: Gross sensation intact, protective sensation diminished. Derm: Left: Multiple Healed ulcers covered by dry scab noted on the heel and lateral side of the left foot. No clinical signs of active infection. Right: Small healing ulcer noted in the right heel 1 cm X 0.4 cm X 0.1 cm. Base is fibrotic, Hyperkeratotic edges. No drainage noted. No tracking, No undermining, No probe to bone. No clinical signs of active infection. MSK: Muscle power 5/5 to all groups, No pain noted on palpating the elif- ulcerative areas. Assessment and Plan - Assessment and Plan (Free Text) Plan: Assessment: 62 year old female with a past medical history of Rheumatoid arthritis, hypertension and hypercholesterolemia and B/L feet OM seen and evaluated in the bedside for b/l LE stable ulcerations with underlying OM. Plan: Patient seen and evaluated at the bedside. Charts, labs and vitals reviewed Discussed plan with attending Dr. Torrez B/L foot/ankle x-ray: Cortical irregularity at the posterior and plantar aspect of the left calcaneus suspicious for osteomyelitis. B/L tib/fibula x-ray: WNL B/L feet then dressed with betadine and DSD. Patient to be full weight bearing in surgical shoe Patient to continue to wear multipodous boot at all times while in bed. Continue with Abx per ID No surgical intervention from podiatry Podiatry will continue to provide local wound care. Podiatry will follow up the patient while in house. Upon discharge, patient to follow up with Dr. Torrez within 1 week Change dressing daily with betadine, dsd, and kerlix Offloading multipodus must be worn at all times while in bed
--- NOTE | 2018-07-10 14:33 | CP.PCM.PN ---
Subjective - Date & Time of Evaluation Date of Evaluation: 07/10/18 Time of Evaluation: 14:20 - Subjective Subjective: dictated Objective - Vital Signs/Intake and Output Vital Signs (last 24 hours): Temp Pulse Resp BP Pulse Ox 98.2 F 77 20 123/74 96 07/10/18 07:12 07/10/18 09:26 07/10/18 09:26 07/10/18 09:26 07/10/18 09:26 Intake and Output: 07/10/18 07/10/18 06:59 18:59 Output Total 900 Balance -900 - Medications Medications: Current Medications Amlodipine Besylate (Norvasc) 5 mg PO DAILY [facility] Last Admin: 07/10/18 09:27 Dose: 5 mg Aspirin (Aspirin Chewable) 81 mg PO DAILY [facility] Last Admin: 07/10/18 09:27 Dose: 81 mg Enoxaparin Sodium (Lovenox) 30 mg SC DAILY [facility] Last Admin: 07/10/18 09:27 Dose: 30 mg Gabapentin (Neurontin) 400 mg PO HS [facility] Last Admin: 07/09/18 21:35 Dose: 400 mg Levothyroxine Sodium (Synthroid) 112 mcg PO DAILY@0630 [facility] Last Admin: 07/10/18 06:58 Dose: 112 mcg Metoprolol Succinate (Toprol Xl) 100 mg PO DAILY [facility] Last Admin: 07/10/18 09:26 Dose: 100 mg Mirtazapine (Remeron) 15 mg PO HS [facility] Last Admin: 07/09/18 21:35 Dose: 15 mg Ondansetron HCl (Zofran Inj) 4 mg IVP Q6 PRN PRN Reason: Nausea/Vomiting Pantoprazole Sodium (Protonix Susp) 40 mg PO DAILY [facility] Last Admin: 07/10/18 09:27 Dose: 40 mg Rosuvastatin Calcium (Crestor) 10 mg PO HS [facility] Last Admin: 07/09/18 21:35 Dose: 10 mg Saccharomyces Boulardii (Florastor) 250 mg PO DAILY [facility] Last Admin: 07/10/18 09:27 Dose: 250 mg Silver Sulfadiazine (Silvadene 1% 20 Gm) 1 ea TOP DAILY [facility] Last Admin: 07/10/18 09:27 Dose: 1 applic Trimethoprim/Sulfamethoxazole (Bactrim Ds Tab) 1 tab PO Q12H [facility]; Protocol Last Admin: 07/10/18 03:56 Dose: 1 tab - Labs Labs: 07/10/18 08:36 07/10/18 08:36
[2018-07-10 16:43] VITALS: BP 125/75; PULSE 80; TEMP 98.3; O2SAT 98
--- NOTE | 2018-07-10 18:17 | PN ---
DATE: 07/10/2018 SUBJECTIVE: She is waiting for discharge as I had switched her to oral antibiotics. She is awake and remains without any respiratory distress at this time. PHYSICAL EXAMINATION: GENERAL: She continues to have right-sided weakness. No new mental change, no shortness of breath. No nausea or vomiting reported. VITAL SIGNS: T max is 98.2, pulse 72, blood pressure 139/78, respirations are 20. Vitals are stable. HEENT: Head is atraumatic, normocephalic. NECK: Supple. LUNGS: Clear. HEART: S1 and S2. Regular. ABDOMEN: Soft and nontender. EXTREMITIES: Have bilateral ulcerations. Podiatry is following. ASSESSMENT AND PLAN: She did receive treatment for osteomyelitis in the recent past, hence I have switched her to oral antibiotics, and she needs local wound care. If that does not work, one has to consider other means than antibiotics because they have failed, which means they may do partial calcaneal resection or debridement, but at this time, Podiatry recommended none of those. Cholo Rich MD
--- NOTE | 2018-07-10 19:45 | CP.PCM.PN ---
Subjective - Date & Time of Evaluation Date of Evaluation: 07/10/18 Objective - Vital Signs/Intake and Output Vital Signs (last 24 hours): Temp Pulse Resp BP Pulse Ox 98.3 F 80 20 125/75 98 07/10/18 15:15 07/10/18 15:15 07/10/18 15:15 07/10/18 15:15 07/10/18 15:15 - Labs Labs: 07/10/18 08:36 07/10/18 08:36
== END 2018-07-10 16:00 | DRG 832 ==
LOC: C.ER 17:25 → C.9E 20:08 → C.6T 20:50 → OBSVTOIN 07-07 17:02
PROVIDERS: ADMIT Internal Medicine Nephrology; ATTEND Internal Medicine Nephrology
DX: G45.9 Transient cerebral ischemic attack, unspecified (principal); E11.621 Type 2 diabetes mellitus with foot ulcer; L97.529 Non-pressure chronic ulcer of other part of left foot with unspecified severity; L97.519 Non-pressure chronic ulcer of other part of right foot with unspecified severity; E11.22 Type 2 diabetes mellitus with diabetic chronic kidney disease; E11.69 Type 2 diabetes mellitus with other specified complication; R47.81 Slurred speech; I12.9 Hypertensive chronic kidney disease with stage 1 through stage 4 chronic kidney disease, or unspecified chronic kidney disease; E78.00 Pure hypercholesterolemia, unspecified; M06.9 Rheumatoid arthritis, unspecified; B95.8 Unspecified staphylococcus as the cause of diseases classified elsewhere; E03.9 Hypothyroidism, unspecified; M86.9 Osteomyelitis, unspecified